=== PATIENT | male | born 1960 | race African-American/Black ===

== ENCOUNTER 2016-09-27 05:48 | Emergency (ER) | payer MEDICAID ==
[2016-08-28 14:13] VITALS: Ht 195.6 cm; Wt 136.1 kg
[~2016-09-27] VITALS: Ht 195.6 cm; Wt 136.1 kg
[~2016-09-27 05:48] MED LIST: ACYC400T PO; BUPR300T55 PO; FENTORA; HCTZ PO; LISI-600 PO; MORP40CA2 PO; NORCO5 PO; OXYC60TA8 PO; PROC10TA PO; PYRI100T2 PO; QUET400T PO; SEROQUEL PO; WELLBUTRIN PO; [UNRECOGNIZED DRUG - CODE] PO
[2016-09-27 05:50] VITALS: BP 153/96; PULSE 73; RESP 17; TEMP 98; O2SAT 99
[2016-09-27] MEDS ORDERED: NACL 0.9% 1,000 ML IV ONE (06:30)
[2016-09-27] MEDS ORDERED: MORPHINE 2 MG/ML INJ. SYRINGE IVP ONE (06:30)
[2016-09-27 07:14] LABS: BASOPHILS % (AUTO) 0.3 % (0.0-2.0); EOSINOPHILS # (AUTO) 0.2 K/uL (0.0-0.4); EOSINOPHILS % (AUTO) 3.2 % (0.0-4.0); HEMATOCRIT 31.6 % (36-54); HEMOGLOBIN 10.2 g/dL (14.0-18.0); LYMPHOCYTES # (AUTO) 0.9 K/uL (1.0-5.5); LYMPHOCYTES % (AUTO) 17.3 % (20.5-51.5); MEAN CORPUSCULAR HEMOGLOBIN 32 pg (27-31); MEAN CORPUSCULAR HGB CONC 32 % (32-36); MEAN CORPUSCULAR VOLUME 100 fL (79.0-98.0); MONOCYTES # (AUTO) 0.2 K/uL (0.0-1.0); MONOCYTES % (AUTO) 4.6 % (1.7-9.3); NEUTROPHILS # (AUTO) 3.8 K/uL (1.8-7.7); NEUTROPHILS % (AUTO) 74.6 % (40.0-70.0); PLATELET COUNT (AUTO) 294 K/uL (130-430); RED BLOOD CELL COUNT(AUTO) 3.15 MIL/uL (4.2-6.2); RED CELL DISTRIBUTION WIDTH 14.9 % (9.0-15.0); WHITE BLOOD COUNT (AUTO) 5.1 K/uL (4.8-10.8)
[2016-09-27 07:31] LABS: PROTHROMBIN TIME 10.4 SECS (9.5-12.5)
[2016-09-27 07:36] LABS: CALCIUM 8.1 mg/dL (8.4-11.0); CREATININE 1.31 mg/dL (0.55-1.30); POTASSIUM 3.8 mmol/L (3.5-5.1)
[2016-09-27 07:37] LABS: ALBUMIN 2.7 g/dL (3.4-4.8); TOTAL BILIRUBIN 0.2 mg/dL (0.0-1.0); TOTAL PROTEIN, SERUM 9.9 g/dL (6.4-8.3)
[2016-09-27] MEDS ORDERED: MORPHINE 4 MG/ML INJ. SYRINGE IVP ONE (09:45)
[2016-09-27] MEDS ORDERED: ONDANSETRON 4 MG ODT TAB PO ONE (09:45)
[2016-09-27 11:26] VITALS: BP 150/96; PULSE 73; RESP 17; TEMP 98; O2SAT 99
== END 2016-09-27 11:26 | disposition home or self-care (01) ==
LOC: SED 05:48
DX: G89.3 Neoplasm related pain (acute) (chronic) (principal); C90.00 Multiple myeloma not having achieved remission; D53.9 Nutritional anemia, unspecified; I10 Essential (primary) hypertension; R79.89 Other specified abnormal findings of blood chemistry; Z86.79 Personal history of other diseases of the circulatory system
CPT/HCPCS: 36415; 71010; 72131; 72192; 80053; 85025; 85610; 85730; 93005; 96374; 99285; J2270; J7030; Q0162

== ENCOUNTER 2018-10-02 09:51 | Inpatient (IN) | payer MEDICAID, OTHER ==
[~2018-10-02] VITALS: Ht 195.6 cm; Wt 137.0 kg
[~2018-10-02 09:51] MED LIST changes: -ACYC400T PO; -HCTZ PO; -MORP40CA2 PO; -NORCO5 PO; -PROC10TA PO; +PROC10TA13 PO; -SEROQUEL PO; -WELLBUTRIN PO
[2018-10-02 10:02] VITALS: BP_SYST 133
[2018-10-02] MEDS ORDERED: NS 1000 ML IV.SOLN IV ONE (11:00)
[2018-10-02] MEDS ORDERED: IPRATROPIUM BROM 0.5 MG/2.5 ML VIAL.NEB (ATROVENT) IH ONE (11:00)
[2018-10-02] MEDS ORDERED: methylPREDNISolone SOD SUCC/PF 62.5 MG/ML VIAL IVP ONE (11:00)
[2018-10-02] MEDS ORDERED: ALBUTEROL SULFATE 0.083% 2.5 MG/3 ML VIAL.NEB IH ONE (11:00)
[2018-10-02] MEDS ORDERED: cefTRIAXone 1 GM IVPB PREMIX 50 ML IV ONE (11:00)
[2018-10-02] MEDS ORDERED: ONDANSETRON HCL 4 MG/2 ML VIAL IVP ONE (11:30)
[2018-10-02] MEDS ORDERED: MORPHINE SULFATE 10 MG/ML VIAL IVP ONE (11:30)
[2018-10-02 12:14] LABS: BASOPHILS % (AUTO) 0.2 % (0.0-2.0); EOSINOPHILS # (AUTO) 0.1 K/uL (0.0-0.4); EOSINOPHILS % (AUTO) 1.1 % (0.0-4.0); HEMATOCRIT 26.4 % (36-54); HEMOGLOBIN 8.7 g/dL (14.0-18.0); LYMPHOCYTES # (AUTO) 1.2 K/uL (1.0-5.5); LYMPHOCYTES % (AUTO) 18.4 % (20.5-51.5); MEAN CORPUSCULAR HEMOGLOBIN 33 pg (27-31); MEAN CORPUSCULAR HGB CONC 33 % (32-36); MEAN CORPUSCULAR VOLUME 101 fL (79.0-98.0); MONOCYTES # (AUTO) 0.3 K/uL (0.0-1.0); MONOCYTES % (AUTO) 4.8 % (1.7-9.3); NEUTROPHILS % (AUTO) 75.5 % (40.0-70.0); PLATELET COUNT (AUTO) 403 K/uL (130-430); RED BLOOD CELL COUNT(AUTO) 2.62 MIL/uL (4.2-6.2); WHITE BLOOD COUNT (AUTO) 6.6 K/uL (4.8-10.8)
[2018-10-02 12:20] LABS: CALCIUM 8.6 mg/dL (8.4-11.0); CREATININE 1.41 mg/dL (0.55-1.30); POTASSIUM 3.6 mmol/L (3.5-5.1)
[2018-10-02 12:26] LABS: PROTHROMBIN TIME 10.6 SECS (9.5-12.5)
[2018-10-02] MEDS ORDERED: MORPHINE 4 MG/ML INJ. SYRINGE IVP ONE (12:30)
[2018-10-02 12:37] LABS: ALBUMIN 2.7 g/dL (3.4-4.8); TOTAL BILIRUBIN 0.3 mg/dL (0.0-1.0)
[2018-10-02 14:24] VITALS: BP_SYST 150
[2018-10-02] MEDS: KCL 20 mEq in D5/0.45NS 1000mL 1,000 ML IV SCH (15:39)
[2018-10-02] MEDS ORDERED: PROCHLORPERAZINE MALEATE 10 MG TABLET PO PRN (16:30)
[2018-10-02] MEDS: MORPHINE 4 MG/ML INJ. SYRINGE IVP PRN (16:32)
[2018-10-02 17:00] VITALS: BP_SYST 147
[2018-10-02 21:03] VITALS: BP_SYST 137
[2018-10-02] MEDS: MORPHINE SULFATE 30 MG TABLET.SA PO SCH (21:28)
[2018-10-02] MEDS: QUEtiapine FUMARATE 100 MG TABLET PO SCH (21:29)
[2018-10-03 02:29] LABS: BILIRUBIN,URINE NEGATIVE (NEGATIVE); CLARITY/URINE CLEAR (CLEAR); COLOR,URINE YELLOW (YELLOW); GLUCOSE,URINE NEGATIVE (NEGATIVE); KETONES,URINE NEGATIVE (NEGATIVE); LEUKOCYTE ESTERASE ,URINE NEGATIVE (NEGATIVE); NITRITE, URINE NEGATIVE (NEGATIVE); PROTEIN URINE NEGATIVE (NEGATIVE); UROBILINOGEN,URINE 0.2 (0.2-1.0)
[2018-10-03 02:30] LABS: BLOOD, URINE TRACE (NEGATIVE)
[2018-10-03 02:35] LABS: BACTERIA,URINE FEW /HPF (None Seen); WBC,URINE 0-3 /HPF (0-3)
[2018-10-03] MEDS: KCL 20 mEq in D5/0.45NS 1000mL 1,000 ML IV SCH ×3 (02:53→22:02)
[2018-10-03 03:26] VITALS: BP_SYST 124
[2018-10-03] MEDS: MORPHINE 4 MG/ML INJ. SYRINGE IVP PRN ×3 (03:52→12:05)
[2018-10-03 08:00] VITALS: BP_SYST 126
[2018-10-03] MEDS: MORPHINE SULFATE 30 MG TABLET.SA PO SCH ×2 (08:01→22:03)
[2018-10-03] MEDS: PYRIDOXINE HCL 50 MG TABLET PO SCH (08:01)
[2018-10-03] MEDS: buPROPion HCL 150 MG XL TAB PO SCH (08:01)
[2018-10-03] MEDS: LISINOPRIL 20 MG TABLET PO SCH (08:02)
[2018-10-03] MEDS: ENOXAPARIN SODIUM 40 MG/0.4 ML SYRINGE SUBCUT SCH (08:08)
[2018-10-03 11:39] VITALS: BP_SYST 139
[2018-10-03 16:38] VITALS: BP_SYST 127
[2018-10-03 19:45] VITALS: BP_SYST 135
[2018-10-03] MEDS: QUEtiapine FUMARATE 100 MG TABLET PO SCH (22:03)
[2018-10-04 00:24] VITALS: BP_SYST 136
[2018-10-04] MEDS: MORPHINE 4 MG/ML INJ. SYRINGE IVP PRN ×2 (05:20→12:32)
[2018-10-04 08:00] VITALS: BP_SYST 122
[2018-10-04] MEDS: MORPHINE SULFATE 30 MG TABLET.SA PO SCH (08:40)
[2018-10-04] MEDS: PYRIDOXINE HCL 50 MG TABLET PO SCH (08:41)
[2018-10-04] MEDS: buPROPion HCL 150 MG XL TAB PO SCH (08:41)
[2018-10-04] MEDS: LISINOPRIL 20 MG TABLET PO SCH (08:41)
[2018-10-04] MEDS: ENOXAPARIN SODIUM 40 MG/0.4 ML SYRINGE SUBCUT SCH (08:42)
[2018-10-04 12:29] VITALS: BP_SYST 137
[2018-10-04 14:05] VITALS: BP_SYST 137
[2018-10-04] MEDS ORDERED: HEPARIN IV FLUSH 300 UNITS/3ML SYR INJ ONE (14:30)
== END 2018-10-04 14:20 | disposition home or self-care (01) | DRG 347 ==
LOC: SED 09:51 → SMU 13:15
PROVIDERS: ADMIT Family Medicine; ATTEND Family Medicine
DX: M51.06 Intervertebral disc disorders with myelopathy, lumbar region (principal); E44.0 Moderate protein-calorie malnutrition; C90.00 Multiple myeloma not having achieved remission; D64.9 Anemia, unspecified; F17.200 Nicotine dependence, unspecified, uncomplicated; G89.29 Other chronic pain; I10 Essential (primary) hypertension; Z92.21 Personal history of antineoplastic chemotherapy; Z68.35 Body mass index [BMI] 35.0-35.9, adult
CPT/HCPCS: 36415; 71045; 72131; 80053; 81000-TC; 82550-TC; 83605; 83880; 84484; 85025; 85379; 85610-TC; 85730-TC; 87040-TC; 93005; 94640; 96361; 96365; 96375; 96376; 97110-GP; 97116-GP; 97530-GP; 99285; J0696; J1650; J2270; J2274; J2405; J2930; J7030; J7613; Q0164

== ENCOUNTER 2018-11-27 14:26 | Inpatient (IN) | payer OTHER ==
[~2018-11-27] VITALS: Ht 195.6 cm; Wt 125.2 kg
[2018-11-27] MEDS ORDERED: NACL 0.9% 1,000 ML IV ONE (14:31)
[2018-11-27 14:33] VITALS: BP_SYST 146
[2018-11-27 15:22] LABS: CALCIUM 9.1 mg/dL (8.4-11.0); CREATININE 1.08 mg/dL (0.55-1.30); POTASSIUM 3.4 mmol/L (3.5-5.1)
[2018-11-27 15:24] LABS: HEMATOCRIT 28.7 % (36-54); HEMOGLOBIN 9.5 g/dL (14.0-18.0); LYMPHOCYTES % (AUTO) 16.2 % (20.5-51.5); MEAN CORPUSCULAR HEMOGLOBIN 32 pg (27-31); MEAN CORPUSCULAR HGB CONC 33 % (32-36); MEAN CORPUSCULAR VOLUME 98 fL (79.0-98.0); NEUTROPHILS % (AUTO) 74.6 % (40.0-70.0); PLATELET COUNT (AUTO) 457 K/uL (130-430); RED BLOOD CELL COUNT(AUTO) 2.93 MIL/uL (4.2-6.2); RED CELL DISTRIBUTION WIDTH 15.6 % (9.0-15.0); WHITE BLOOD COUNT (AUTO) 5.1 K/uL (4.8-10.8)
[2018-11-27 15:25] LABS: BASOPHILS % (AUTO) 0.4 % (0.0-2.0); EOSINOPHILS # (AUTO) 0.2 K/uL (0.0-0.4); EOSINOPHILS % (AUTO) 3.9 % (0.0-4.0); LYMPHOCYTES # (AUTO) 0.8 K/uL (1.0-5.5); MONOCYTES # (AUTO) 0.2 K/uL (0.0-1.0); MONOCYTES % (AUTO) 4.9 % (1.7-9.3); NEUTROPHILS # (AUTO) 3.8 K/uL (1.8-7.7)
[2018-11-27 15:26] LABS: PROTHROMBIN TIME 10.4 SECS (9.5-12.5)
[2018-11-27 15:36] LABS: ALBUMIN 2.7 g/dL (3.4-4.8); TOTAL BILIRUBIN 0.3 mg/dL (0.0-1.0)
[2018-11-27] MEDS ORDERED: MORPHINE 4 MG/ML INJ. SYRINGE IVP ONE (16:45)
[2018-11-27] MEDS ORDERED: PROCHLORPERAZINE MALEATE 10 MG TABLET PO SCH (19:00)
[2018-11-27] MEDS ORDERED: MAGNESIUM SULFATE 50 ML IV PRN (19:00)
[2018-11-27] MEDS ORDERED: MUPIROCIN 2% TOPICAL OINTMENT 22 GM NS PRN (19:00)
[2018-11-27] MEDS ORDERED: DOCUSATE SODIUM 100 MG CAPSULE PO PRN (19:00)
[2018-11-27] MEDS ORDERED: ACETAMINOPHEN 325 MG TABLET PO PRN (19:00)
[2018-11-27] MEDS ORDERED: HYDROcodone/ACETAMIN 5-325 MG TAB (NORCO/ VICODIN) PO PRN (19:00)
[2018-11-27] MEDS ORDERED: POTASSIUM CHLORIDE 20 MEQ TAB.PRT.SR PO PRN (19:00)
[2018-11-27] MEDS ORDERED: ACYC400T PO (19:48)
[2018-11-27] MEDS ORDERED: DOCU-144 PO (19:48)
[2018-11-27] MEDS ORDERED: MED4 PO (19:48)
[2018-11-27] MEDS ORDERED: MAG1TABL2 PO (19:48)
[2018-11-27] MEDS: QUEtiapine FUMARATE 100 MG TABLET PO SCH (21:06)
[2018-11-27] MEDS: HEPARIN SODIUM,PORCINE 5000 UNITS/ML VIAL SUBCUT SCH (21:13)
[2018-11-27 21:26] VITALS: BP_SYST 159
[2018-11-27 23:59] VITALS: BP_SYST 140
[2018-11-28] MEDS: HYDROcodone/ACETAMIN 5-325 MG TAB (NORCO/ VICODIN) PO PRN (06:17)
[2018-11-28] MEDS: HEPARIN SODIUM,PORCINE 5000 UNITS/ML VIAL SUBCUT SCH ×2 (06:19→18:22)
[2018-11-28 07:50] VITALS: BP_SYST 146
[2018-11-28 08:27] LABS: CALCIUM 8.3 mg/dL (8.4-11.0); CREATININE 1.15 mg/dL (0.55-1.30); POTASSIUM 3.7 mmol/L (3.5-5.1)
[2018-11-28] MEDS: LISINOPRIL 20 MG TABLET PO SCH (08:43)
[2018-11-28] MEDS: buPROPion HCL 150 MG XL TAB PO SCH (08:43)
[2018-11-28 09:03] LABS: BASOPHILS % (AUTO) 0.3 % (0.0-2.0); EOSINOPHILS # (AUTO) 0.2 K/uL (0.0-0.4); HEMATOCRIT 27.4 % (36-54); HEMOGLOBIN 8.8 g/dL (14.0-18.0); LYMPHOCYTES # (AUTO) 0.7 K/uL (1.0-5.5); LYMPHOCYTES % (AUTO) 17.5 % (20.5-51.5); MEAN CORPUSCULAR HEMOGLOBIN 32 pg (27-31); MEAN CORPUSCULAR HGB CONC 32 % (32-36); MEAN CORPUSCULAR VOLUME 98 fL (79.0-98.0); MONOCYTES # (AUTO) 0.3 K/uL (0.0-1.0); MONOCYTES % (AUTO) 6.2 % (1.7-9.3); PLATELET COUNT (AUTO) 415 K/uL (130-430); RED BLOOD CELL COUNT(AUTO) 2.78 MIL/uL (4.2-6.2); RED CELL DISTRIBUTION WIDTH 15.8 % (9.0-15.0); WHITE BLOOD COUNT (AUTO) 4.1 K/uL (4.8-10.8)
[2018-11-28 12:18] VITALS: BP_SYST 141
[2018-11-28] MEDS ORDERED: amLODIPine BESYLATE 5 MG TABLET PO ONE (13:00)
[2018-11-28 16:22] VITALS: BP_SYST 131
[2018-11-28 20:12] VITALS: BP_SYST 151
[2018-11-28] MEDS: QUEtiapine FUMARATE 100 MG TABLET PO SCH (22:12)
[2018-11-29 00:40] VITALS: BP_SYST 139
[2018-11-29] MEDS: HYDROcodone/ACETAMIN 5-325 MG TAB (NORCO/ VICODIN) PO PRN ×3 (00:46→18:01)
[2018-11-29] MEDS: HEPARIN SODIUM,PORCINE 5000 UNITS/ML VIAL SUBCUT SCH ×2 (06:54→18:31)
[2018-11-29 07:02] LABS: CALCIUM 8.8 mg/dL (8.4-11.0); CREATININE 1.18 mg/dL (0.55-1.30); POTASSIUM 3.4 mmol/L (3.5-5.1)
[2018-11-29 08:05] VITALS: BP_SYST 154
[2018-11-29] MEDS: LISINOPRIL 20 MG TABLET PO SCH (08:37)
[2018-11-29] MEDS: amLODIPine BESYLATE 5 MG TABLET PO SCH (08:37)
[2018-11-29] MEDS: buPROPion HCL 150 MG XL TAB PO SCH (08:37)
[2018-11-29 09:07] LABS: HEMATOCRIT 26.8 % (36-54); HEMOGLOBIN 8.6 g/dL (14.0-18.0); MEAN CORPUSCULAR HEMOGLOBIN 32 pg (27-31); MEAN CORPUSCULAR HGB CONC 32 % (32-36); MEAN CORPUSCULAR VOLUME 99 fL (79.0-98.0); PLATELET COUNT (AUTO) 394 K/uL (130-430); RED BLOOD CELL COUNT(AUTO) 2.71 MIL/uL (4.2-6.2); RED CELL DISTRIBUTION WIDTH 15.5 % (9.0-15.0); WHITE BLOOD COUNT (AUTO) 3.4 K/uL (4.8-10.8)
[2018-11-29 09:08] LABS: BASOPHILS % (AUTO) 0.2 % (0.0-2.0); EOSINOPHILS # (AUTO) 0.1 K/uL (0.0-0.4); EOSINOPHILS % (AUTO) 3.4 % (0.0-4.0); LYMPHOCYTES # (AUTO) 0.8 K/uL (1.0-5.5); LYMPHOCYTES % (AUTO) 24.5 % (20.5-51.5); MONOCYTES # (AUTO) 0.2 K/uL (0.0-1.0); MONOCYTES % (AUTO) 7.1 % (1.7-9.3); NEUTROPHILS # (AUTO) 2.2 K/uL (1.8-7.7); NEUTROPHILS % (AUTO) 64.8 % (40.0-70.0)
[2018-11-29] MEDS ORDERED: CALCIUM CARBONATE/VITAMIN D3 1 TAB TABLET PO ONE (10:15)
[2018-11-29 12:32] VITALS: BP_SYST 131
[2018-11-29 17:00] VITALS: BP_SYST 128
[2018-11-29] MEDS: NACL 0.9% 1,000 ML IV SCH (18:03)
[2018-11-29 20:00] VITALS: BP_SYST 155
[2018-11-29] MEDS: QUEtiapine FUMARATE 100 MG TABLET PO SCH (21:29)
[2018-11-29 23:25] VITALS: BP_SYST 128
[2018-11-30] MEDS: NACL 0.9% 1,000 ML IV SCH ×2 (02:55→20:09)
[2018-11-30] MEDS: HYDROcodone/ACETAMIN 5-325 MG TAB (NORCO/ VICODIN) PO PRN ×3 (04:06→20:10)
[2018-11-30] MEDS: HEPARIN SODIUM,PORCINE 5000 UNITS/ML VIAL SUBCUT SCH ×2 (06:43→18:20)
[2018-11-30 06:45] LABS: CALCIUM 8.6 mg/dL (8.4-11.0); CREATININE 1.18 mg/dL (0.55-1.30); POTASSIUM 3.8 mmol/L (3.5-5.1)
[2018-11-30 06:49] LABS: BASOPHILS % (AUTO) 0.4 % (0.0-2.0); EOSINOPHILS # (AUTO) 0.1 K/uL (0.0-0.4); HEMATOCRIT 27.5 % (36-54); HEMOGLOBIN 8.9 g/dL (14.0-18.0); LYMPHOCYTES # (AUTO) 0.7 K/uL (1.0-5.5); LYMPHOCYTES % (AUTO) 21.4 % (20.5-51.5); MEAN CORPUSCULAR HEMOGLOBIN 32 pg (27-31); MEAN CORPUSCULAR HGB CONC 32 % (32-36); MEAN CORPUSCULAR VOLUME 99 fL (79.0-98.0); MONOCYTES # (AUTO) 0.3 K/uL (0.0-1.0); MONOCYTES % (AUTO) 7.5 % (1.7-9.3); NEUTROPHILS # (AUTO) 2.3 K/uL (1.8-7.7); NEUTROPHILS % (AUTO) 66.7 % (40.0-70.0); PLATELET COUNT (AUTO) 393 K/uL (130-430); RED BLOOD CELL COUNT(AUTO) 2.79 MIL/uL (4.2-6.2); RED CELL DISTRIBUTION WIDTH 15.3 % (9.0-15.0); WHITE BLOOD COUNT (AUTO) 3.4 K/uL (4.8-10.8)
[2018-11-30 07:18] VITALS: BP_SYST 152
[2018-11-30 08:00] VITALS: BP_SYST 152
[2018-11-30 08:24] LABS: IMMUNOGLOBULIN G, SERUM 3874 mg/dL (700-1600)
[2018-11-30] MEDS: amLODIPine BESYLATE 5 MG TABLET PO SCH (09:10)
[2018-11-30] MEDS: buPROPion HCL 150 MG XL TAB PO SCH (09:10)
[2018-11-30] MEDS: CALCIUM CARBONATE/VITAMIN D3 1 TAB TABLET PO SCH (09:10)
[2018-11-30] MEDS: LISINOPRIL 20 MG TABLET PO SCH (09:11)
[2018-11-30 10:07] LABS: IMMUNOGLOBULIN M, SERUM <5 mg/dL (20-172)
[2018-11-30 11:46] VITALS: BP_SYST 141
[2018-11-30 15:45] VITALS: BP_SYST 160
[2018-11-30] MEDS ORDERED: DEXAMETHASONE SOD PHOSPHATE 10 MG/ML VIAL IVP SCH (18:30)
[2018-11-30 20:00] VITALS: BP_SYST 114
[2018-11-30] MEDS: QUEtiapine FUMARATE 100 MG TABLET PO SCH (20:09)
[2018-12-01] VITALS: BP_SYST 143
[2018-12-01] MEDS: HYDROcodone/ACETAMIN 5-325 MG TAB (NORCO/ VICODIN) PO PRN ×3 (06:23→23:14)
[2018-12-01] MEDS: HEPARIN SODIUM,PORCINE 5000 UNITS/ML VIAL SUBCUT SCH ×2 (06:25→20:37)
[2018-12-01 06:51] LABS: CALCIUM 8.4 mg/dL (8.4-11.0); CREATININE 1.19 mg/dL (0.55-1.30); POTASSIUM 3.7 mmol/L (3.5-5.1)
[2018-12-01 07:05] LABS: BASOPHILS % (AUTO) 0.4 % (0.0-2.0); EOSINOPHILS # (AUTO) 0.1 K/uL (0.0-0.4); HEMATOCRIT 27.9 % (36-54); LYMPHOCYTES # (AUTO) 0.9 K/uL (1.0-5.5); LYMPHOCYTES % (AUTO) 25.5 % (20.5-51.5); MEAN CORPUSCULAR HEMOGLOBIN 32 pg (27-31); MEAN CORPUSCULAR HGB CONC 32 % (32-36); MEAN CORPUSCULAR VOLUME 98 fL (79.0-98.0); MONOCYTES # (AUTO) 0.2 K/uL (0.0-1.0); MONOCYTES % (AUTO) 6.4 % (1.7-9.3); NEUTROPHILS # (AUTO) 2.2 K/uL (1.8-7.7); NEUTROPHILS % (AUTO) 63.7 % (40.0-70.0); PLATELET COUNT (AUTO) 402 K/uL (130-430); RED BLOOD CELL COUNT(AUTO) 2.83 MIL/uL (4.2-6.2); RED CELL DISTRIBUTION WIDTH 15.7 % (9.0-15.0); WHITE BLOOD COUNT (AUTO) 3.4 K/uL (4.8-10.8)
[2018-12-01 07:51] VITALS: BP_SYST 139
[2018-12-01] MEDS: amLODIPine BESYLATE 5 MG TABLET PO SCH (09:12)
[2018-12-01] MEDS: CALCIUM CARBONATE/VITAMIN D3 1 TAB TABLET PO SCH (09:13)
[2018-12-01] MEDS: buPROPion HCL 150 MG XL TAB PO SCH (09:13)
[2018-12-01] MEDS: LISINOPRIL 20 MG TABLET PO SCH (09:13)
[2018-12-01 10:13] LABS: A/G RATIO 0.5 (0.7-1.7); ALBUMIN 2.8 g/dL (2.9-4.4); ALPHA-1-GLOBULIN 0.3 g/dL (0.0-0.4); ALPHA-2-GLOBULIN 1.1 g/dL (0.4-1.0); BETA GLOBULIN 0.9 g/dL (0.7-1.3); GLOBULIN, TOTAL 5.3 g/dL (2.2-3.9); M-SPIKE 2.7 g/dL (Not Observed)
[2018-12-01 12:00] VITALS: BP_SYST 140
[2018-12-01] MEDS: NACL 0.9% 1,000 ML IV SCH (12:31)
[2018-12-01] MEDS ORDERED: LORazepam 2 MG/ML VIAL IVP ONE (13:00)
[2018-12-01] MEDS ORDERED: LORazepam 2 MG/ML VIAL ONE (13:20)
[2018-12-01] MEDS ORDERED: GADOPENTETATE DIMEGLUMINE 15 ML VIAL IV ONE (13:20)
[2018-12-01] MEDS ORDERED: GADOPENTETATE DIMEGLUMINE 5 ML VIAL IV ONE (13:20)
[2018-12-01 16:00] VITALS: BP_SYST 142
[2018-12-01 19:00] VITALS: BP_SYST 139
[2018-12-01 20:00] VITALS: BP_SYST 139
[2018-12-01] MEDS: QUEtiapine FUMARATE 100 MG TABLET PO SCH (20:35)
[2018-12-02 00:03] VITALS: BP_SYST 139
[2018-12-02] MEDS: HYDROcodone/ACETAMIN 5-325 MG TAB (NORCO/ VICODIN) PO PRN ×3 (03:32→23:47)
[2018-12-02] MEDS: NACL 0.9% 1,000 ML IV SCH ×2 (03:33→23:52)
[2018-12-02] MEDS: HEPARIN SODIUM,PORCINE 5000 UNITS/ML VIAL SUBCUT SCH ×2 (06:31→18:53)
[2018-12-02 07:05] LABS: CALCIUM 8.7 mg/dL (8.4-11.0); CREATININE 1.24 mg/dL (0.55-1.30); POTASSIUM 3.8 mmol/L (3.5-5.1)
[2018-12-02 07:23] LABS: BASOPHILS % (AUTO) 0.2 % (0.0-2.0); EOSINOPHILS # (AUTO) 0.2 K/uL (0.0-0.4); EOSINOPHILS % (AUTO) 4.1 % (0.0-4.0); HEMATOCRIT 28.8 % (36-54); HEMOGLOBIN 9.2 g/dL (14.0-18.0); LYMPHOCYTES % (AUTO) 26.4 % (20.5-51.5); MEAN CORPUSCULAR HEMOGLOBIN 32 pg (27-31); MEAN CORPUSCULAR HGB CONC 32 % (32-36); MEAN CORPUSCULAR VOLUME 99 fL (79.0-98.0); MONOCYTES # (AUTO) 0.3 K/uL (0.0-1.0); NEUTROPHILS # (AUTO) 2.3 K/uL (1.8-7.7); NEUTROPHILS % (AUTO) 61.3 % (40.0-70.0); PLATELET COUNT (AUTO) 384 K/uL (130-430); WHITE BLOOD COUNT (AUTO) 3.7 K/uL (4.8-10.8)
[2018-12-02 07:44] VITALS: BP_SYST 147
[2018-12-02] MEDS: CALCIUM CARBONATE/VITAMIN D3 1 TAB TABLET PO SCH (08:20)
[2018-12-02] MEDS: amLODIPine BESYLATE 5 MG TABLET PO SCH (08:22)
[2018-12-02] MEDS: buPROPion HCL 150 MG XL TAB PO SCH (08:22)
[2018-12-02] MEDS: LISINOPRIL 20 MG TABLET PO SCH (08:22)
[2018-12-02 16:03] VITALS: BP_SYST 132
[2018-12-02 21:00] VITALS: BP_SYST 144
[2018-12-02] MEDS: QUEtiapine FUMARATE 100 MG TABLET PO SCH (21:02)
[2018-12-03 01:20] VITALS: BP_SYST 119
[2018-12-03] MEDS: HYDROcodone/ACETAMIN 5-325 MG TAB (NORCO/ VICODIN) PO PRN (04:00)
[2018-12-03] MEDS: HEPARIN SODIUM,PORCINE 5000 UNITS/ML VIAL SUBCUT SCH (06:19)
[2018-12-03 08:06] VITALS: BP_SYST 150
== END 2018-12-03 09:05 | disposition left against medical advice (07) | DRG 691 ==
LOC: SED 14:26 → SMU 18:59
PROVIDERS: ADMIT Family Medicine; ATTEND Family Medicine
DX: C90.00 Multiple myeloma not having achieved remission (principal); C41.4 Malignant neoplasm of pelvic bones, sacrum and coccyx; F33.2 Major depressive disorder, recurrent severe without psychotic features; F11.20 Opioid dependence, uncomplicated; E87.1 Hypo-osmolality and hyponatremia; G35 Multiple sclerosis; R45.851 Suicidal ideations; Z53.21 Procedure and treatment not carried out due to patient leaving prior to being seen by health care provider; I70.90 Unspecified atherosclerosis; Z53.29 Procedure and treatment not carried out because of patient's decision for other reasons; F17.210 Nicotine dependence, cigarettes, uncomplicated; M25.552 Pain in left hip; M25.551 Pain in right hip; D64.9 Anemia, unspecified; M54.9 Dorsalgia, unspecified; I10 Essential (primary) hypertension; M47.816 Spondylosis without myelopathy or radiculopathy, lumbar region; G89.4 Chronic pain syndrome; Z91.5 Personal history of self-harm; Z79.899 Other long term (current) drug therapy; Z92.21 Personal history of antineoplastic chemotherapy; Z76.5 Malingerer [conscious simulation]; Z59.0 Homelessness; Z79.52 Long term (current) use of systemic steroids; Z98.1 Arthrodesis status
CPT/HCPCS: 36415; 70450-TC; 71045; 71250-TC; 72100-TC; 80048; 80053; 82150-TC; 82550-TC; 82784; 83036; 83605; 83690-TC; 83735-TC; 83880; 84100-TC; 84155; 84165; 84443-TC; 84484; 85025; 85379; 85610-TC; 85730-TC; 87040-TC; 87081; 93005; 93970; 96361; 96374; 97110-GP; 97116-GP; 97530-GP; 99285; A9579; J1644; J2060; J2270; J7030; Q0164

== ENCOUNTER 2019-01-27 10:13 | Emergency (ER) | payer MEDICAID ==
[~2019-01-27] VITALS: Ht 195.6 cm; Wt 129.3 kg
[2019-01-27 10:13] VITALS: BP_SYST 140
[~2019-01-27 10:13] MED LIST changes: +ACYC400T PO; -BUPR300T55 PO; +DOCU-144 PO; -FENTORA; +MAG1TABL2 PO; +MED4 PO; -OXYC60TA8 PO; -PROC10TA13 PO; -[UNRECOGNIZED DRUG - CODE] PO
--- NOTE | 2019-01-27 10:13 | NUR ---
BROUGHT BACK TO BED #4 VIA WHEELCHAIR, PLACED IN BED AND TRIAGED. REPORT GIVEN TO ANGUS
--- NOTE | 2019-01-27 10:20 | NUR ---
PT came into ER complaining of chest pain. PT advised that he is unble to move his arm. PT vitals stable and EKG completed for MD Sher to interpret.
--- NOTE | 2019-01-27 10:30 | NUR ---
GISSELLE Edward at bedside examining patient.
[2019-01-27] MEDS ORDERED: MORPHINE 4 MG/ML INJ. SYRINGE IM ONE ×2 (10:45→11:30)
--- NOTE | 2019-01-27 10:45 | NUR ---
Rad staff at bedside completing an xray.
--- NOTE | 2019-01-27 11:01 | NUR ---
Patient resting quietly. No acute distress noted. Vital signs within normal range.
[2019-01-27 11:40] VITALS: BP_SYST 140
--- NOTE | 2019-01-27 11:40 | NUR ---
Patient given written and verbal discharge instructions and verbalizes understanding. ER MD discussed with patient the results and treatment provided. Patient in stable condition. ID arm band removed. Rx of Naproxen given. Patient educated on pain management and to follow up with PMD. Pain Scale 6/10. Opportunity for questions provided and answered. Medication side effect fact sheet provided.
== END 2019-01-27 11:40 | disposition home or self-care (01) ==
LOC: SED 10:13
DX: G89.29 Other chronic pain (principal); M25.511 Pain in right shoulder; I10 Essential (primary) hypertension; Z59.0 Homelessness; Z86.79 Personal history of other diseases of the circulatory system; Z79.899 Other long term (current) drug therapy
CPT/HCPCS: 73000; 73030; 93005; 96372; 99283; J2270

== ENCOUNTER 2019-01-30 10:29 | Emergency (ER) | payer MEDICAID ==
[~2019-01-30] VITALS: Ht 193 cm; Wt 136.1 kg
[2019-01-30 10:30] VITALS: BP_SYST 154
[2019-01-30] MEDS ORDERED: KETOROLAC TROMETHAMINE 60 MG/2 ML VIAL IM ONE (13:45)
== END 2019-01-30 14:20 | disposition home or self-care (01) ==
LOC: SED 10:29
DX: L76.34 Postprocedural seroma of skin and subcutaneous tissue following other procedure (principal); I10 Essential (primary) hypertension; Z86.79 Personal history of other diseases of the circulatory system; Z79.899 Other long term (current) drug therapy
CPT/HCPCS: 96372; 99284; J1885; 99283

== ENCOUNTER 2019-02-25 19:40 | Emergency (ER) | payer MEDICAID ==
[~2019-02-25] VITALS: Ht 195.6 cm; Wt 127.0 kg
[2019-02-25 19:49] VITALS: BP_SYST 149
--- NOTE | 2019-02-25 19:55 | NUR ---
Patient triaged and placed in waiting room. VSS and patient appears in no acute distress at this time. Accompanied by self, awaiting available bed, and MD notified of need for MSE.
--- NOTE | 2019-02-25 21:06 | NUR ---
Radiology unable to locate patient at this time for films.
[2019-02-26] MEDS ORDERED: APIX5TAB4 PO (13:40)
[2019-02-26] MEDS ORDERED: CYAN100070 PO (13:40)
[2019-02-26] MEDS ORDERED: [UNRECOGNIZED DRUG - OTHER] (13:40)
[2019-02-26] MEDS ORDERED: METH2TAB PO (13:40)
[2019-02-26] MEDS ORDERED: magnesium PO (13:40)
[2019-02-26] MEDS ORDERED: Vit B6 PO (13:40)
[2019-02-26] MEDS ORDERED: GABA-531 PO (13:40)
[2019-02-26] MEDS ORDERED: VIT A PO (13:40)
[2019-02-26] MEDS ORDERED: OMEG1CAP PO (13:41)
== END 2019-02-25 21:06 | disposition left against medical advice (07) ==
LOC: SED 19:40
DX: M25.552 Pain in left hip (principal); R20.2 Paresthesia of skin; Z53.21 Procedure and treatment not carried out due to patient leaving prior to being seen by health care provider
CPT/HCPCS: J7030

== ENCOUNTER 2019-02-26 09:10 | Inpatient (IN) | payer MEDICAID ==
[~2019-02-26] VITALS: Ht 195.6 cm; Wt 129.7 kg
[2019-02-26] MEDS ORDERED: NS 1000 ML IV.SOLN IV ONE (09:15)
[2019-02-26] MEDS ORDERED: NITROGLYCERIN 0.4 MG TAB.SUBL SL ONE (09:15)
[2019-02-26] MEDS ORDERED: NACL 0.9% 1,000 ML IV ONE (09:15)
[2019-02-26] MEDS ORDERED: MORPHINE 4 MG/ML INJ. SYRINGE IVP ONE ×2 (09:15→12:00)
[2019-02-26] MEDS ORDERED: ASPIRIN 81 MG TAB.CHEW PO ONE (09:15)
[2019-02-26 09:20] VITALS: BP_SYST 146
--- NOTE | 2019-02-26 09:21 | NUR ---
ER Dr. GONZALEZ at bedside examining patient.
--- NOTE | 2019-02-26 09:22 | NUR ---
PT found at parking lot infront of ER laying on the floor. PT was not bleeding and advised he had chest and hip pain. PT stated the pain was generalized throught chest and hip. PT was able to transfer to wheelchair and placed in bed 6.
--- NOTE | 2019-02-26 09:30 | NUR ---
PT has a port a cath on upper right chest. Accessed with pressley needle. PT tolerated without complication or complaint.
--- NOTE | 2019-02-26 09:45 | NUR ---
radiology at bedside. PT with RN and Rad staff.
[2019-02-26 10:28] LABS: BASOPHILS % (AUTO) 0.5 % (0.0-2.0); EOSINOPHILS # (AUTO) 0.2 K/uL (0.0-0.4); EOSINOPHILS % (AUTO) 3.4 % (0.0-4.0); HEMATOCRIT 29.4 % (36-54); HEMOGLOBIN 9.6 g/dL (14.0-18.0); LYMPHOCYTES # (AUTO) 0.8 K/uL (1.0-5.5); LYMPHOCYTES % (AUTO) 17.3 % (20.5-51.5); MEAN CORPUSCULAR HEMOGLOBIN 32 pg (27-31); MEAN CORPUSCULAR HGB CONC 33 % (32-36); MEAN CORPUSCULAR VOLUME 98 fL (79.0-98.0); MONOCYTES # (AUTO) 0.2 K/uL (0.0-1.0); MONOCYTES % (AUTO) 3.9 % (1.7-9.3); NEUTROPHILS # (AUTO) 3.4 K/uL (1.8-7.7); NEUTROPHILS % (AUTO) 74.9 % (40.0-70.0); PLATELET COUNT (AUTO) 274 K/uL (130-430); RED CELL DISTRIBUTION WIDTH 15.4 % (9.0-15.0); WHITE BLOOD COUNT (AUTO) 4.5 K/uL (4.8-10.8)
[2019-02-26 10:35] LABS: PROTHROMBIN TIME 10.1 SECS (9.5-12.5)
[2019-02-26 10:56] LABS: CALCIUM 8.3 mg/dL (8.4-11.0); CREATININE 1.08 mg/dL (0.55-1.30); POTASSIUM 4.5 mmol/L (3.5-5.1)
[2019-02-26 11:01] LABS: ALBUMIN 2.5 g/dL (3.4-4.8); TOTAL BILIRUBIN 0.4 mg/dL (0.0-1.0)
[2019-02-26 12:40] LABS: BILIRUBIN,URINE NEGATIVE (NEGATIVE); CLARITY/URINE CLEAR (CLEAR); COLOR,URINE YELLOW (YELLOW); GLUCOSE,URINE NEGATIVE (NEGATIVE); KETONES,URINE NEGATIVE (NEGATIVE); LEUKOCYTE ESTERASE ,URINE NEGATIVE (NEGATIVE); NITRITE, URINE NEGATIVE (NEGATIVE); PROTEIN URINE NEGATIVE (NEGATIVE); UROBILINOGEN,URINE 0.2 (0.2-1.0)
[2019-02-26 12:43] LABS: BLOOD, URINE TRACE (NEGATIVE)
--- NOTE | 2019-02-26 12:53 | NUR ---
Spoke with Dr. Lui Branham, admission orders recieved, orders entered by nurse.
[2019-02-26 13:13] LABS: BACTERIA,URINE RARE /HPF (None Seen); MUCUS,URINE 1+ /LPF (None Seen); RBC,URINE 0-3 /HPF (0-3); WBC,URINE 0-3 /HPF (0-3)
[2019-02-26] MEDS ORDERED: APIX5TAB4 PO (13:40)
[2019-02-26] MEDS ORDERED: CYAN100070 PO (13:40)
[2019-02-26] MEDS ORDERED: VIT A PO (13:40)
[2019-02-26] MEDS ORDERED: magnesium PO (13:40)
[2019-02-26] MEDS ORDERED: [UNRECOGNIZED DRUG - OTHER] (13:40)
[2019-02-26] MEDS ORDERED: GABA-531 PO (13:40)
[2019-02-26] MEDS ORDERED: Vit B6 PO (13:40)
[2019-02-26] MEDS ORDERED: METH2TAB PO (13:40)
[2019-02-26] MEDS ORDERED: OMEG1CAP PO (13:41)
--- NOTE | 2019-02-26 13:50 | NUR ---
Medication reconciliation completed with information provided by patient . Any prior medication reconciliation on file was reviewed and corrected.
--- NOTE | 2019-02-26 14:00 | NUR ---
ADMISSION NOTE Received patient from ER via nayeli, received report from ROBERTH VALDES. Patient admitted with diagnosis of CHEST PAIN. Patient oriented to hospital routine, call light, toileting and safety-patient verbalized understanding.
--- NOTE | 2019-02-26 14:10 | NUR ---
Patient will be admitted to care of Dr Branham. Admitted to Tele unit. Will go to room 102A . Belongings list completed. Summary report printed. Report will be given at bedside.
[2019-02-26 14:15] VITALS: BP_SYST 147
--- NOTE | 2019-02-26 14:23 | NUR ---
opening note patient is resting in bed, watching tv and eating, A&Ox4, assessment completed, no signs of distress, educated on plan of care and call light system, no other needs at this time, patient came in with a right chest portacath, fall/safety precautions in place.
[2019-02-26] MEDS ORDERED: LORazepam 2 MG/ML VIAL IVP PRN (16:15)
[2019-02-26] MEDS ORDERED: HYDROcodone/ACETAMIN 5-325 MG TAB (NORCO/ VICODIN) PO PRN (16:15)
[2019-02-26] MEDS ORDERED: PROCHLORPERAZINE MALEATE 10 MG TABLET PO PRN (16:15)
[2019-02-26] MEDS ORDERED: ACETAMINOPHEN 325 MG TABLET PO PRN (16:15)
[2019-02-26 17:05] VITALS: BP_SYST 159
[2019-02-26] MEDS: HYDROcodone/ACETAMIN 10-325 MG TAB PO PRN ×2 (17:05→22:09)
--- NOTE | 2019-02-26 17:05 | NUR ---
pain medication patient is resting in bed, complaining of right hip pain, educated on medication use and side effects, patient verbalized understanding, no other needs at this time, fall/safety precautions in place.
--- NOTE | 2019-02-26 18:43 | NUR ---
closing note patient resting in bed, I spoke to Dr Branham in regards to the patient's complaints of right arm numbness and pain, okayed for x-ray of the arm, informed patient about this, no other needs at this time, will endorse report to [facility] shift nurse about this, fall/safety precautions in place.
--- NOTE | 2019-02-26 19:30 | NUR ---
OPENING NOTE RECEIVED CARE OF PT. PT RESTING IN BED, AAOX4, NO S/S OF ACUTE DISTRESS, BREATHING IS UNLABORED TO ROOM AIR WITH NO SOB NOTED. RIGHT CHEST PORTACATH IS IN PLACE. PT ORIENTED TO USE OF CALL LIGHT AND ENCOURAGED TO CALL FOR ANY ASSISTANCE. SAFETY PRECAUTIONS ARE IN PLACE: BED IS LOCKED IN LOWEST POSITION, SIDE RAILS UP X2, CALL LIGHT IS WITH PT, BED ALARM ON. WILL MONITOR.
[2019-02-26 20:00] VITALS: BP_SYST 148
[2019-02-26] MEDS: GABAPENTIN 300 MG CAPSULE PO SCH (20:02)
[2019-02-26] MEDS: QUEtiapine FUMARATE 100 MG TABLET PO SCH (20:02)
[2019-02-26] MEDS: DOCUSATE SODIUM 100 MG CAPSULE PO SCH (20:02)
[2019-02-26] MEDS: NORMAL SALINE 5 ML DISP.SYRIN IVF SCH ×2 (20:03)
[2019-02-26] MEDS: APIXABAN 2.5 MG TABLET PO SCH (20:03)
--- NOTE | 2019-02-26 20:03 | NUR ---
SCHEDULED MED PASS PT GIVEN SCHEDULED MEDICATIONS. MEDICATION ACTIONS AND POTENTIAL SIDE EFFECTS EXPLAINED TO PT. PT VERBALIZED UNDERSTANDING. SAFETY PRECAUTIONS ARE IN PLACE. WILL MONITOR.
--- NOTE | 2019-02-26 22:09 | NUR ---
PAIN/NORCO PT REPORTING SEVERE BACK PAIN. NORCO 10-325 MG PO ADMINISTERED. MEDICATION ACTION AND POTENTIAL SIDE EFFECTS EXPLAINED. PT VERBALIZED UNDERSTANDING. SAFETY MAINTAINED. WILL MONITOR.
--- NOTE | 2019-02-26 23:35 | NUR ---
SNACKS PT BROUGHT SANDWICHES AND SUGAR-FREE PUDDING PER REQUEST. PT DENIES FURTHER NEEDS AT THIS TIME. WILL MONITOR.
[2019-02-26 23:45] VITALS: BP_SYST 139
--- NOTE | 2019-02-27 01:55 | NUR ---
SLEEPING PT RESTING IN BED WITH EYES CLOSED. VISIBLE SYMMETRICAL RISE AND FALL OF CHEST TO ROOM AIR. NO S/S OF ACUTE DISTRESS, NO SOB NOTED. SAFETY PRECAUTIONS ARE IN PLACE. BED ALARM IS ON. WILL MONITOR.
--- NOTE | 2019-02-27 03:02 | NUR ---
RN ROUNDS: PT RESTING IN BED WITH EYES CLOSED. NO S/S OF DISTRESS. BREATHING IS EVEN AND EFFORTLESS TO ROOM AIR, BILATERAL RISE AND FALL OF CHEST TO ROOM AIR. SAFETY AND FALL PRECAUTIONS ARE IN PLACE. WILL MONITOR.
--- NOTE | 2019-02-27 03:44 | NUR ---
PAGED: Letitaid Dr. Lucrecia Branham Regarding orders Spoke with audrey
--- NOTE | 2019-02-27 03:49 | NUR ---
SPOKE TO DR. KELLEY REGARDING PT'S SEVERE PAIN. MORPHINE 2MG IVP Q4 PRN SEVERE PAIN WAS ORDERED. ALSO MENTIONED TO THE MD PT'S REPORT OF LOWER LEFT SACRAL PAIN. MD STATED HE WILL SEE THE PT IN THE MORNING. WILL CARRY OUT NEW ORDER.
[2019-02-27] MEDS: MORPHINE 2 MG/ML INJ. SYRINGE IVP PRN ×5 (04:07→21:36)
--- NOTE | 2019-02-27 04:07 | NUR ---
PAIN/MORPHINE PT REPORTING SEVERE PAIN. MORPHINE 2 MG IVP ADMINISTERED VIA PT'S RIGHT CHEST PORTACATH. MEDICATION ACTION AND POTENTIAL SIDE EFFECTS EXPLAINED. PT VERBALIZED UNDERSTANDING. SAFETY PRECAUTIONS ARE IN PLACE, CALL LIGHT IS WITH PT. WILL MONITOR.
[2019-02-27] MEDS: NORMAL SALINE 5 ML DISP.SYRIN IVF SCH ×6 (05:42→21:37)
--- NOTE | 2019-02-27 06:35 | NUR ---
CLOSING NOTE PT RESTING IN BED, NO VISIBLE SIGNS OF DISTRESS, BREATHING IS UNLABORED TO ROOM AIR. ALL NEEDS MET DURING SHIFT. SAFETY MAINTAINED. WILL CONTINUE TO MONITOR UNTIL PT CARE IS ENDORSED TO DAY SHIFT RN.
[2019-02-27 08:00] VITALS: BP_SYST 129
[2019-02-27 08:07] LABS: BASOPHILS % (AUTO) 0.9 % (0.0-2.0); EOSINOPHILS # (AUTO) 0.1 K/uL (0.0-0.4); HEMATOCRIT 29.1 % (36-54); HEMOGLOBIN 9.5 g/dL (14.0-18.0); LYMPHOCYTES % (AUTO) 26.1 % (20.5-51.5); MEAN CORPUSCULAR HEMOGLOBIN 32 pg (27-31); MEAN CORPUSCULAR HGB CONC 33 % (32-36); MEAN CORPUSCULAR VOLUME 98 fL (79.0-98.0); MONOCYTES # (AUTO) 0.2 K/uL (0.0-1.0); MONOCYTES % (AUTO) 4.6 % (1.7-9.3); NEUTROPHILS # (AUTO) 2.4 K/uL (1.8-7.7); NEUTROPHILS % (AUTO) 64.4 % (40.0-70.0); PLATELET COUNT (AUTO) 260 K/uL (130-430); RED BLOOD CELL COUNT(AUTO) 2.96 MIL/uL (4.2-6.2); RED CELL DISTRIBUTION WIDTH 15.2 % (9.0-15.0); WHITE BLOOD COUNT (AUTO) 3.7 K/uL (4.8-10.8)
[2019-02-27] MEDS: DOCUSATE SODIUM 100 MG CAPSULE PO SCH ×2 (08:17→20:17)
[2019-02-27] MEDS: APIXABAN 2.5 MG TABLET PO SCH ×2 (08:19→20:18)
[2019-02-27] MEDS: GABAPENTIN 300 MG CAPSULE PO SCH ×3 (08:19→20:18)
[2019-02-27] MEDS: OMEGA-3/DHA/EPA/FISH OIL 1 GM CAPSULE PO SCH (08:19)
[2019-02-27] MEDS: QUEtiapine FUMARATE 100 MG TABLET PO SCH ×2 (08:24→20:17)
[2019-02-27] MEDS: LISINOPRIL 20 MG TABLET PO SCH (08:24)
[2019-02-27] MEDS: ACYCLOVIR 400 MG TABLET PO SCH (08:25)
[2019-02-27] MEDS: CYANOCOBALAMIN 1000 mCg TABLET PO SCH (08:25)
[2019-02-27 08:26] LABS: CALCIUM 8.4 mg/dL (8.4-11.0); CREATININE 1.07 mg/dL (0.55-1.30); PHOSPHORUS 3.4 mg/dL (2.7-4.5); POTASSIUM 3.7 mmol/L (3.5-5.1)
[2019-02-27] MEDS ORDERED: MAGNESIUM 250 MG PO SCH (09:00)
[2019-02-27] MEDS ORDERED: MAG OXIDE PO SCH (09:00)
[2019-02-27] MEDS ORDERED: TURMERIC RT XT PO SCH (09:00)
[2019-02-27] MEDS ORDERED: D3 PO SCH (09:00)
[2019-02-27] MEDS ORDERED: [UNRECOGNIZED DRUG - OTHER] PO SCH (09:00)
[2019-02-27 11:24] VITALS: BP_SYST 126
--- NOTE | 2019-02-27 11:28 | NUR ---
Oncology consult called: for Dr. Mckeon, regarding multiple myeloma, ordered by Lui Castillo
[2019-02-27 15:36] VITALS: BP_SYST 127
--- NOTE | 2019-02-27 19:15 | NUR ---
OPENING NOTES Bedside report received from dayshift nurse. Patient received lying in bed, no s/s of acute distress noted. Breathing even and unlabored. Call light with patient. Will continue to monitor.
[2019-02-27] MEDS: HYDROcodone/ACETAMIN 10-325 MG TAB PO PRN (19:36)
[2019-02-27 20:00] VITALS: BP_SYST 132
--- NOTE | 2019-02-27 20:00 | NUR ---
NEW IV IV site started by Hu BARNES RN, at right forearm, 22 gauge. Patient tolerated procedure well. All needs met at this time. Will continue to monitor.
--- NOTE | 2019-02-27 21:30 | NUR ---
PAIN Patient complained of 10/10 pain. PRN medication to be administered.
--- NOTE | 2019-02-27 23:00 | NUR ---
ROUNDS Patient in bed asleep at this time. No s/s of acute distress noted. Breathing even and unlabored. Call light with patient.
[2019-02-27 23:22] VITALS: BP_SYST 126
--- NOTE | 2019-02-28 01:30 | NUR ---
PAIN Patient complained of chest pain at this time. PRN medication to be administered. Call light with patient. Will continue to monitor and reassess.
[2019-02-28] MEDS: MORPHINE 2 MG/ML INJ. SYRINGE IVP PRN ×5 (01:38→18:18)
--- NOTE | 2019-02-28 03:23 | NUR ---
ROUNDS Patient sleeping comfortably. No s/s of acute distress noted. Breathing even and unlabored. Call light with patient. Will continue to monitor.
--- NOTE | 2019-02-28 05:00 | NUR ---
ROUNDS Patient sleeping at this time. No signs of discomfort noted. Chest rise and fall even bilaterally. Call light with patient.
[2019-02-28] MEDS: NORMAL SALINE 5 ML DISP.SYRIN IVF SCH ×6 (06:35→22:00)
--- NOTE | 2019-02-28 06:36 | NUR ---
CLOSING NOTES Patient in bed asleep. No s/s of acute distress noted. Breathing even and unlabored. IV site patent, no signs of infiltration or infection noted. All needs met throughout shift. Fall and safety precautions maintained throughout shift. Will continue to monitor until patient care is endorsed to oncoming dayshift nurse.
[2019-02-28 08:28] VITALS: BP_SYST 143
--- NOTE | 2019-02-28 08:42 | NUR ---
INITIAL ROUNDS/MD Received pt AAOx4, no s/s resp distress, c/o pain to right upper arm-pt states the 2 mg Morphine is not enough-Dr. Branham here and informed-stated he will look at pt's medications. Plan of care for the day reviewed with pt-pt verbalized his understanding. Ice packs placed to pt's right upper arm. Pain management, disease process, skin and safety discussed-teach back done. Call light within reach.
[2019-02-28] MEDS: QUEtiapine FUMARATE 100 MG TABLET PO SCH ×2 (09:00→21:34)
[2019-02-28] MEDS: ACYCLOVIR 400 MG TABLET PO SCH (09:39)
[2019-02-28] MEDS: CYANOCOBALAMIN 1000 mCg TABLET PO SCH (09:39)
[2019-02-28] MEDS: GABAPENTIN 300 MG CAPSULE PO SCH ×3 (09:39→21:32)
[2019-02-28] MEDS: OMEGA-3/DHA/EPA/FISH OIL 1 GM CAPSULE PO SCH (09:39)
[2019-02-28] MEDS: DOCUSATE SODIUM 100 MG CAPSULE PO SCH ×2 (09:39→21:32)
[2019-02-28] MEDS: LISINOPRIL 20 MG TABLET PO SCH (09:40)
[2019-02-28] MEDS: APIXABAN 2.5 MG TABLET PO SCH ×2 (09:41→21:33)
[2019-02-28] MEDS ORDERED: CALCIUM 600/VIT D PO ONE (11:15)
[2019-02-28] MEDS ORDERED: ZOLEDRONIC ACID 4 MG in NS 100 ML IV ONE (11:15)
[2019-02-28 11:25] VITALS: BP_SYST 148
[2019-02-28] MEDS: HYDROcodone/ACETAMIN 10-325 MG TAB PO PRN ×2 (11:37→17:28)
--- NOTE | 2019-02-28 12:40 | NUR ---
ROUNDS Pt sitting up in bed with no s/s resp distress, pt currently talking with the social problems specialist at bedside. No changes. Call light within reach.
[2019-02-28 12:51] LABS: BASOPHILS % (AUTO) 0.5 % (0.0-2.0); EOSINOPHILS # (AUTO) 0.1 K/uL (0.0-0.4); EOSINOPHILS % (AUTO) 3.4 % (0.0-4.0); HEMATOCRIT 29.9 % (36-54); HEMOGLOBIN 9.7 g/dL (14.0-18.0); LYMPHOCYTES # (AUTO) 0.9 K/uL (1.0-5.5); LYMPHOCYTES % (AUTO) 23.6 % (20.5-51.5); MEAN CORPUSCULAR HEMOGLOBIN 32 pg (27-31); MEAN CORPUSCULAR HGB CONC 32 % (32-36); MEAN CORPUSCULAR VOLUME 98 fL (79.0-98.0); MONOCYTES # (AUTO) 0.2 K/uL (0.0-1.0); MONOCYTES % (AUTO) 5.2 % (1.7-9.3); NEUTROPHILS # (AUTO) 2.6 K/uL (1.8-7.7); NEUTROPHILS % (AUTO) 67.3 % (40.0-70.0); PLATELET COUNT (AUTO) 271 K/uL (130-430); RED BLOOD CELL COUNT(AUTO) 3.05 MIL/uL (4.2-6.2); RED CELL DISTRIBUTION WIDTH 15.3 % (9.0-15.0); WHITE BLOOD COUNT (AUTO) 3.9 K/uL (4.8-10.8)
[2019-02-28 13:07] LABS: CALCIUM 8.9 mg/dL (8.4-11.0); CHLORIDE 104 mmol/L (98-107); CREATININE 1.16 mg/dL (0.55-1.30); GFR AFRICAN AMERICAN 83 mL/min (>90); GLUCOSE 98 mg/dL (70-99); POTASSIUM 3.9 mmol/L (3.5-5.1); SODIUM SERUM 134 mmol/L (136-145); UREA NITROGEN, BLOOD 19 mg/dL (8-21)
[2019-02-28 13:08] LABS: ANION GAP < 3 (5-15)
--- NOTE | 2019-02-28 13:25 | NUR ---
Patient Insurance Clerk: FARMER GENER[employer] meet with pt. bedside. Pt was talkative and easily participated in this interview. He stated he is at the [facility], he stated, "Bone Marrow Cancer". He said is in the process of finding a PCP and Oncologist, needs glasses and clothing, uses a cane he has in his car and confirmed he is still homeless. Pt. added, his sister is his emergency contact and a replacement [employer] card is suppose to be sent to [place] [id number] [place]. [id number] [phone] When asked, pt. stated he cannot stay with his sister for a few days following d/c because too many people reside there. Pt. stated he has his car parked in the parking lot and at night he will park it near [address] and [address] ("Where the [address] use to be"). He says noone bothers him there. FARMER GENERAL shared with him some resources and explained what they were. FARMER GENERAL gave him the following resources -Directive and explained what it was as well as how to get document notarized or signed by 2 witnesses. -Outpt. mental health -Homeless assistance packet including the phone contact for [facility]ie Luo [facility]. [facility] Mental [facility] Homeless Outreach -Ph. contact for [facility]. Additionally, FARMER GENERAL left a Homeless waiver in the pt. binder Pt. did not have any other questions for FARMER GENERAL who will remain available as needed. Addendum: 02/28/19 at 1338 by Mecca King FARMER [employer] Patient Insurance Clerk: FARMER GENERAL went through the resource packet with pt. When FARMER GENERAL mentioned food stamps, pt. stated he went to the [facility] in [place]. They gave him temporary food stamps, but he has not received this service on his card. He stated he walked away with some paperwork and will follow up on his phone upon discharge.
--- NOTE | 2019-02-28 15:35 | NUR ---
ROUNDS Pt resting quietly in bed with no s/s resp distress, no c/o pain. Needs met. Call light within reach.
[2019-02-28 15:52] VITALS: BP_SYST 145
[2019-02-28] MEDS: ONDANSETRON HCL 4 MG/2 ML VIAL IVP PRN (18:30)
--- NOTE | 2019-02-28 19:05 | NUR ---
CLOSING NOTE Pt now resting quietly in bed with no further c/o nausea, pt's c/o pain now 5/10. Needs met, call light within reach.
--- NOTE | 2019-02-28 20:15 | NUR ---
MORPHINE SULFATE 2 MG IVP administer for general pain and helpful position change encouraged & tolerated , helpful .
[2019-02-28 20:16] VITALS: BP_SYST 143
[2019-02-28] MEDS: CALCIUM 600/VIT D PO SCH (21:36)
--- NOTE | 2019-02-28 22:05 | NUR ---
PATIENT AWAKE ASKING FOR FOOD JUICE & SANDWITCH PO GIVEN patient keep up right position call gallagher with patient .
--- NOTE | 2019-03-01 00:50 | NUR ---
SEROquel 400 mg po administer as ordered , patient Resting is verbally Responsive call gallagher with patient .
[2019-03-01 00:51] VITALS: BP_SYST 143
[2019-03-01 01:04] LABS: TOTAL IRON BIND. CAPACITY 209 ug/dL (250-450)
--- NOTE | 2019-03-01 01:29 | NUR ---
PATIENT REQUEST ASKING FOR SNACKS JUICE & SAND WITCHES given po tolerate .
[2019-03-01 05:00] VITALS: BP_SYST 141
[2019-03-01] MEDS: NORMAL SALINE 5 ML DISP.SYRIN IVF SCH ×6 (05:14→21:11)
[2019-03-01 06:11] LABS: BASOPHILS % (AUTO) 0.3 % (0.0-2.0); EOSINOPHILS # (AUTO) 0.1 K/uL (0.0-0.4); EOSINOPHILS % (AUTO) 3.9 % (0.0-4.0); HEMATOCRIT 29.2 % (36-54); HEMOGLOBIN 9.4 g/dL (14.0-18.0); LYMPHOCYTES # (AUTO) 0.9 K/uL (1.0-5.5); LYMPHOCYTES % (AUTO) 24.5 % (20.5-51.5); MEAN CORPUSCULAR HEMOGLOBIN 31 pg (27-31); MEAN CORPUSCULAR HGB CONC 32 % (32-36); MEAN CORPUSCULAR VOLUME 97 fL (79.0-98.0); MONOCYTES # (AUTO) 0.2 K/uL (0.0-1.0); MONOCYTES % (AUTO) 6.9 % (1.7-9.3); NEUTROPHILS # (AUTO) 2.3 K/uL (1.8-7.7); NEUTROPHILS % (AUTO) 64.4 % (40.0-70.0); PLATELET COUNT (AUTO) 285 K/uL (130-430); RED CELL DISTRIBUTION WIDTH 15.5 % (9.0-15.0); WHITE BLOOD COUNT (AUTO) 3.6 K/uL (4.8-10.8)
[2019-03-01 06:12] LABS: CREATININE 1.39 mg/dL (0.55-1.30); POTASSIUM 3.7 mmol/L (3.5-5.1)
--- NOTE | 2019-03-01 08:00 | NUR ---
initial notes rec patient awake alert with hob elevated and resp easy and unlabored.no sob noted. bed to the lowest position and siderails up and locked. call light within reached and knows when to call for assistance. will continue to monitor patient.
[2019-03-01] MEDS: QUEtiapine FUMARATE 100 MG TABLET PO SCH ×3 (09:00→21:11)
[2019-03-01] MEDS: CYANOCOBALAMIN 1000 mCg TABLET PO SCH (10:09)
[2019-03-01] MEDS: OMEGA-3/DHA/EPA/FISH OIL 1 GM CAPSULE PO SCH (10:09)
[2019-03-01] MEDS: GABAPENTIN 300 MG CAPSULE PO SCH ×3 (10:09→21:09)
[2019-03-01] MEDS: ACYCLOVIR 400 MG TABLET PO SCH (10:09)
[2019-03-01] MEDS: DOCUSATE SODIUM 100 MG CAPSULE PO SCH ×2 (10:09→21:09)
[2019-03-01] MEDS: LISINOPRIL 20 MG TABLET PO SCH (10:10)
[2019-03-01] MEDS: APIXABAN 2.5 MG TABLET PO SCH ×2 (10:11→21:10)
[2019-03-01] MEDS: CALCIUM 600/VIT D PO SCH ×2 (10:20→21:09)
--- NOTE | 2019-03-01 10:30 | NUR ---
rounds ambulated by p.t at bedside and hallway and jesus well. no sob noted. call light within reached.
[2019-03-01] MEDS: MORPHINE 2 MG/ML INJ. SYRINGE IVP PRN ×3 (11:15→21:15)
[2019-03-01] MEDS: ONDANSETRON HCL 4 MG/2 ML VIAL IVP PRN (11:20)
--- NOTE | 2019-03-01 12:00 | NUR ---
rounds resting comfortably. no sob noted. ambulates at intervals at bedside. call light within reached.
[2019-03-01 12:34] VITALS: BP_SYST 124
--- NOTE | 2019-03-01 15:00 | NUR ---
rounds attempted to use the sink to oooooooooooooooooooooooooooooooooooooooooooooooooooooooooooooooooooooooooooo rounds attempted to use the br and legs become weak and kneeled to the floor instead with 3 nurses. was put back to bed . no injuries noted. \ oooooooooooooooooooooooooooooooooooooooooooooooooooooooooooooooooooooooooooooooooooooooooooo ooooooooooooooooooooooooooooooooooooooooooo
[2019-03-01] MEDS: HYDROcodone/ACETAMIN 10-325 MG TAB PO PRN (15:41)
[2019-03-01 16:16] VITALS: BP_SYST 153
[2019-03-01] MEDS ORDERED: CYANOCOBALAMIN 1000 MCG/ML VIAL IM ONE (16:45)
--- NOTE | 2019-03-01 19:00 | NUR ---
closing notes sleeping at thisitme. bed to the lowest position and side rails up and locked. stable. needs attended.
[2019-03-01 20:12] VITALS: BP_SYST 152
--- NOTE | 2019-03-01 20:22 | NUR ---
PATIENT AWAKE SITTING UP IN BED FALL MEASURES INTACT , PROCEDURES EXPLAINED PATIENT ON REGULAR PO DIET AGAIN ASKING FOR SNACKS JUICE & SAND WITCH GIVEN .
--- NOTE | 2019-03-01 22:11 | NUR ---
SEROquel 400 MG PO given as ordered for agitation & helpful .
--- NOTE | 2019-03-01 22:12 | NUR ---
MORPHINE SULFATE 2 MG IVP administer for GENERAL pain 03/02 assist for position change helpful .
[2019-03-02 00:35] VITALS: BP_SYST 122
--- NOTE | 2019-03-02 00:42 | NUR ---
HOURLY ROUNDING patient Resting verbally responsive call gallagher with PT MORPHINE helpful for acute pain .
[2019-03-02] MEDS: ONDANSETRON HCL 4 MG/2 ML VIAL IVP PRN ×2 (02:36→18:50)
[2019-03-02] MEDS: MORPHINE 2 MG/ML INJ. SYRINGE IVP PRN ×5 (02:37→22:59)
--- NOTE | 2019-03-02 02:58 | NUR ---
ZOFRAN 4 NG IVP GIVEN NAUSEA & HELPFUL .
--- NOTE | 2019-03-02 02:59 | NUR ---
MORPHINE SULFATE 2 MG IVP GIVEN FOR PAIN & HELPFUL .
[2019-03-02] MEDS: NORMAL SALINE 5 ML DISP.SYRIN IVF SCH ×6 (05:35→21:00)
[2019-03-02 06:56] LABS: BASOPHILS % (AUTO) 0.3 % (0.0-2.0); EOSINOPHILS # (AUTO) 0.1 K/uL (0.0-0.4); EOSINOPHILS % (AUTO) 2.9 % (0.0-4.0); HEMATOCRIT 30.7 % (36-54); LYMPHOCYTES # (AUTO) 0.7 K/uL (1.0-5.5); LYMPHOCYTES % (AUTO) 15.9 % (20.5-51.5); MEAN CORPUSCULAR HEMOGLOBIN 32 pg (27-31); MEAN CORPUSCULAR HGB CONC 33 % (32-36); MEAN CORPUSCULAR VOLUME 98 fL (79.0-98.0); MONOCYTES # (AUTO) 0.3 K/uL (0.0-1.0); MONOCYTES % (AUTO) 6.8 % (1.7-9.3); NEUTROPHILS # (AUTO) 3.2 K/uL (1.8-7.7); NEUTROPHILS % (AUTO) 74.1 % (40.0-70.0); PLATELET COUNT (AUTO) 285 K/uL (130-430); RED BLOOD CELL COUNT(AUTO) 3.14 MIL/uL (4.2-6.2); RED CELL DISTRIBUTION WIDTH 15.2 % (9.0-15.0); WHITE BLOOD COUNT (AUTO) 4.4 K/uL (4.8-10.8)
[2019-03-02 07:29] LABS: CREATININE 1.22 mg/dL (0.55-1.30)
[2019-03-02 07:35] VITALS: BP_SYST 144
[2019-03-02] MEDS: GABAPENTIN 300 MG CAPSULE PO SCH ×3 (08:54→20:59)
[2019-03-02] MEDS: QUEtiapine FUMARATE 100 MG TABLET PO SCH ×3 (08:54→20:59)
[2019-03-02] MEDS: ACYCLOVIR 400 MG TABLET PO SCH (08:54)
[2019-03-02] MEDS: CALCIUM 600/VIT D PO SCH ×2 (08:55→20:59)
[2019-03-02] MEDS: DOCUSATE SODIUM 100 MG CAPSULE PO SCH ×2 (08:55→20:59)
[2019-03-02] MEDS: CYANOCOBALAMIN 1000 mCg TABLET PO SCH (08:55)
[2019-03-02] MEDS: OMEGA-3/DHA/EPA/FISH OIL 1 GM CAPSULE PO SCH (08:55)
[2019-03-02] MEDS: LISINOPRIL 20 MG TABLET PO SCH (08:56)
[2019-03-02] MEDS: APIXABAN 2.5 MG TABLET PO SCH ×2 (08:56→21:00)
--- NOTE | 2019-03-02 09:30 | NUR ---
AT 0910 PT HAD A GUIDED/ASSISTED FALL IN PATIENT'S ROOM. POST FALL HUDDLE DONE, MD WILL BE MADE AWARE. NO NOTICEABLE INJURY.
--- NOTE | 2019-03-02 10:27 | NUR ---
PT note Patient refusing therapy at this time, will try again tomorrow.
[2019-03-02 11:25] VITALS: BP_SYST 128
--- NOTE | 2019-03-02 12:23 | NUR ---
DR KELLEY WAS HERE , SEEN AND SPOKE WITH PT. MD WAS MADE AWARE OF THE GUIDED FALL THE PT HAD THIS AM. NO NEW ORDERS. PT'S SISTER CALLED AND EXPLAINED TO HER THE DC PLAN TO SNF.
--- NOTE | 2019-03-02 13:22 | NUR ---
Discharge Planning: DCP faxed pt referral to [facility] (f [phone] p [phone]) DCP to follow up
--- NOTE | 2019-03-02 14:28 | NUR ---
INTAKE NURSE FROM ROHINI MEDEL HERE TO EVAL PATIENT.
--- NOTE | 2019-03-02 14:43 | NUR ---
PT GIVEN MORPHINE FOR CHRONIC BACK AND CHEST PAIN. WILL MONITOR PATIENT.
[2019-03-02 15:19] VITALS: BP_SYST 122
--- NOTE | 2019-03-02 17:01 | NUR ---
PATIENT TRANSFERRED TO ROOM 105A BY BED TO BE NEAR THE NURSING STATION. ALL BELONGINGS MOVED WITH PATIENT.
--- NOTE | 2019-03-02 18:51 | NUR ---
CLOSING NOTES PT HAD A GUIDED/ASSISTED FALL WHEN AMBULATING TO BED, RIR DONE. VITALS WNL NO FEVER. GIVEN PAIN MEDICATIONS AND NAUSEA MEDICATIONS OTHERWISE PATIENT IS STABLE. WILL ENDORSE TO NIGHT NURSE.
--- NOTE | 2019-03-02 19:30 | NUR ---
Initial Notes Received handoff report from offgoing nurse Dixon-KEISHA at the bedside. Patient is aaox4, resting comfortably in bed. Patient right forearm #22g intact, dressing clean and dry, saline locked. Patient also has a right upper chest portacath, saline locked, dressing clean and dry. Bed is locked, in the lowest position, 2x side rails up. Patient refuses bed alarm at this time. States that he will call for assistance if needed. Call light is within reach. Will continue with plan of care.
[2019-03-02 20:00] VITALS: BP_SYST 123
--- NOTE | 2019-03-02 21:24 | NUR ---
Patient aware that a stool sample will be needed for occult blood testing. Stated he will call before he needs to have a bowel movement so we can provide him assistance.
--- NOTE | 2019-03-02 22:59 | NUR ---
Patient complaining of lower back pain 03/02. Stated that he has had this aching pain for a long time. Morphine provided PRN per MD order, see eMAR for details. Also provided patient with two wheat turkey sandwich, 2 chocolate puddings, 2 shirin crackers, and ice per patient request. Bed is locked, in the lowest position, 2x side rails up. Patient refuses bed alarm. Call light within reach. Encouraged patient to call for assistance.
--- NOTE | 2019-03-02 23:52 | NUR ---
Patient resting in bed, eyes closed. Breathing even and unlabored, visible chest rise and fall noted. No SOB, no acute distress, no signs of pain or facial grimacing noted. Bed is locked, in the lowest position, 2x side rails up. Call light within reach.
[2019-03-03 00:09] VITALS: BP_SYST 106
--- NOTE | 2019-03-03 02:30 | NUR ---
patient resting in bed. sleeping. no sob, no acute distress, no signs of pain. breathing even and unlabored. visible chest rise and fall noted. stable.
--- NOTE | 2019-03-03 04:56 | NUR ---
PATIENT RESTING IN BED, EYES CLOSED. BREATHING EVEN AND UNLABORED. NO SOB, NO ACUTE DISTRESS, NO SIGNS OF PAIN OR FACIAL GRIMACING NOTED. CALL LIGHT WITHIN REACH.
[2019-03-03] MEDS: NORMAL SALINE 5 ML DISP.SYRIN IVF SCH ×6 (05:13→21:42)
--- NOTE | 2019-03-03 06:34 | NUR ---
Closing Notes Patient is resting comfortably in bed, eyes closed. Breathing even and unlabored with visible chest rise and fall noted. No SOB, no acute distress, no signs of pain or facial grimacing noted. IV site intact, dressing clean and dry,saline locked. Portacath site intact, dressing clean and dry, saline locked. Bed is locked, in the lowest position, 2x side rails up, bed alarm is on. Call light is within reach. Fall and safety precautions maintained. All needs have been met during this shift.
[2019-03-03] MEDS: MORPHINE 2 MG/ML INJ. SYRINGE IVP PRN ×4 (06:50→19:46)
[2019-03-03] MEDS: ONDANSETRON HCL 4 MG/2 ML VIAL IVP PRN ×2 (06:53→15:33)
[2019-03-03 07:38] VITALS: BP_SYST 101
[2019-03-03 07:48] LABS: BASOPHILS % (AUTO) 0.5 % (0.0-2.0); EOSINOPHILS # (AUTO) 0.1 K/uL (0.0-0.4); EOSINOPHILS % (AUTO) 3.4 % (0.0-4.0); HEMATOCRIT 31.4 % (36-54); HEMOGLOBIN 10.3 g/dL (14.0-18.0); LYMPHOCYTES # (AUTO) 0.8 K/uL (1.0-5.5); LYMPHOCYTES % (AUTO) 20.1 % (20.5-51.5); MEAN CORPUSCULAR HEMOGLOBIN 32 pg (27-31); MEAN CORPUSCULAR HGB CONC 33 % (32-36); MEAN CORPUSCULAR VOLUME 98 fL (79.0-98.0); MONOCYTES # (AUTO) 0.3 K/uL (0.0-1.0); NEUTROPHILS # (AUTO) 2.8 K/uL (1.8-7.7); PLATELET COUNT (AUTO) 304 K/uL (130-430); RED CELL DISTRIBUTION WIDTH 15.9 % (9.0-15.0); WHITE BLOOD COUNT (AUTO) 4.1 K/uL (4.8-10.8)
[2019-03-03 07:54] LABS: CALCIUM 8.6 mg/dL (8.4-11.0); CHLORIDE 102 mmol/L (98-107); CREATININE 1.48 mg/dL (0.55-1.30); GLUCOSE 114 mg/dL (70-99); POTASSIUM 4.3 mmol/L (3.5-5.1); SODIUM SERUM 131 mmol/L (136-145); UREA NITROGEN, BLOOD 34 mg/dL (8-21)
[2019-03-03 07:56] LABS: ANION GAP < 3 (5-15); GFR AFRICAN AMERICAN 62 mL/min (>90)
--- NOTE | 2019-03-03 08:00 | NUR ---
Note Pt sitting up in bed eating his breakfast. No SOB/resp distress or pain/discomfort noted at this time. IV in right forearm intact and patent, right upper chest pippa cath intact and patent at this time as well. No needs noted at this time. Pt next to nurses' station for close observation for needs and care. Call light within reach. Addendum: 03/03/19 at 1036 by Esha Velazquez RN Pt refused to have bed alarm on. Pt states I always call when getting OOB to go to restroom.
[2019-03-03] MEDS: GABAPENTIN 300 MG CAPSULE PO SCH ×3 (08:38→21:40)
[2019-03-03] MEDS: DOCUSATE SODIUM 100 MG CAPSULE PO SCH ×2 (08:39→21:40)
[2019-03-03] MEDS: CYANOCOBALAMIN 1000 mCg TABLET PO SCH (08:39)
[2019-03-03] MEDS: ACYCLOVIR 400 MG TABLET PO SCH (08:39)
[2019-03-03] MEDS: OMEGA-3/DHA/EPA/FISH OIL 1 GM CAPSULE PO SCH (08:39)
[2019-03-03] MEDS: APIXABAN 2.5 MG TABLET PO SCH ×2 (08:40→21:41)
[2019-03-03] MEDS: QUEtiapine FUMARATE 100 MG TABLET PO SCH ×2 (08:41→21:40)
[2019-03-03] MEDS: LISINOPRIL 20 MG TABLET PO SCH (08:41)
[2019-03-03] MEDS: CALCIUM 600/VIT D PO SCH ×2 (10:27→21:40)
--- NOTE | 2019-03-03 10:30 | NUR ---
Note Pt resting in bed. No needs noted at this time. No SOB/resp distress or pain/discomfort noted at this time. Pt was assisted to restroom with FWW and RN by side. Pt tolerated ambulation well at this time. Did have right hip pain. Call light within reach.
--- NOTE | 2019-03-03 11:38 | NUR ---
Catering Administrative Assistant Note Received a call from Gracie Luo, Department of Mental Health homeless outreach, . She would like to follow up with patient and would like a call once SNF discharge plans are arranged.
--- NOTE | 2019-03-03 12:20 | NUR ---
Discharge Planning: DCP followed up with [facility] (f [phone] p [phone]) Per Darlene no male beds available. DCP followed up with Karen from [facility], packet given to her by . Per Karen DON has looked over clinically looks good, before a confirm on accepting the mainframe systems administrator has to review and approve. DCP to follow up. DCP faxed referral to [facility] (f [phone] p [phone]) and [facility] (f [phone] p [phone]) DCP to follow up. Addendum: 03/03/19 at 1623 by Seema Crisostomo DP [facility] (f [phone] p [phone]) declined pt [facility] (f [phone] p [phone])declined pt DCP faxed to [facility] (f [phone] p [phone] and [facility] ([phone] p [phone]) DCP to follow up.
[2019-03-03 12:54] VITALS: BP_SYST 100
--- NOTE | 2019-03-03 14:05 | NUR ---
Note After finishing his lunch, pt fell asleep at this time. No needs noted at this time. Call light within reach.
--- NOTE | 2019-03-03 16:11 | NUR ---
Dietitian Recommendations * Recommend continuing regular diet LP, RD Please refer to Nutrition Assessment for details. Addendum: 03/03/19 at [address] Amended: Links added.
[2019-03-03 16:38] VITALS: BP_SYST 106
--- NOTE | 2019-03-03 18:30 | NUR ---
Note Pt resting in bed after eating his dinner. No SOB/resp distress or severe hip pain/discomfort noted at this time. IV in right hand intact and patent. Pt was checked on q1' and PRN all shift for needs and care. Pt maintained with safety precautions all shift. Pt stable at this time, no needs noted. Call light within reach.
--- NOTE | 2019-03-03 19:46 | NUR ---
Opening notes Received report. Patient resting in bed. Complaining of pain to lower back 10/10. VSS. PRN pain medications given. Educated the action and side effects of medications. Patient verbalized understanding and tolerated well. No signs of allergic reaction noted. IV patent and intact, saline locked. Right chest portacath noted. Emptied 400 ml from urinal. Patient refusing bed alarm, states he will call when he needs to get up. Call light with the patient. Safety precautions in place.
[2019-03-03 20:00] VITALS: BP_SYST 104
--- NOTE | 2019-03-03 21:45 | NUR ---
Medications given. Educated the action and side effects of medications. Patient verbalized understanding and tolerated well. No signs of allergic reaction noted. Provided patient with shirin crackers. No other needs. Call light with the patient. Safety precautions in place.
--- NOTE | 2019-03-04 | NUR ---
Sleeping No signs of distress noted. Breathing even and unlabored. Call light with the patient. Safety precautions in place.
[2019-03-04 00:44] VITALS: BP_SYST 104
--- NOTE | 2019-03-04 02:06 | NUR ---
Sleeping No signs of distress noted. Breathing even and unlabored. Safety precautions in place. Emptied 400 ml from urinal.
[2019-03-04] MEDS: MORPHINE 2 MG/ML INJ. SYRINGE IVP PRN ×3 (03:14→12:11)
--- NOTE | 2019-03-04 03:20 | NUR ---
Pain Patient complains of 10/10 pain to lower back. PRN pain medication given. Patient tolerated well. No signs of allergic reaction. Provided patient with snacks. Emptied 800 ml from urinal. No other needs. Call light with the patient. Safety precautions in place.
--- NOTE | 2019-03-04 04:32 | NUR ---
Sleeping No signs of distress noted. Breathing even and unlabored. Call light with the patient. Safety precautions in place.
[2019-03-04] MEDS: NORMAL SALINE 5 ML DISP.SYRIN IVF SCH ×4 (06:00→13:05)
--- NOTE | 2019-03-04 06:19 | NUR ---
Closing notes Patient asleep in bed. No signs of distress noted. Breathing even and unlabored. IV patent and intact, saline locked. Right chest portacath in place. All needs met throughout the shift. Call light with the patient. Safety precautions in place. Will endorse care to day shift RN.
[2019-03-04 06:48] LABS: BASOPHILS % (AUTO) 0.4 % (0.0-2.0); EOSINOPHILS # (AUTO) 0.2 K/uL (0.0-0.4); EOSINOPHILS % (AUTO) 4.9 % (0.0-4.0); HEMATOCRIT 30.2 % (36-54); HEMOGLOBIN 9.9 g/dL (14.0-18.0); LYMPHOCYTES % (AUTO) 28.9 % (20.5-51.5); MEAN CORPUSCULAR HEMOGLOBIN 32 pg (27-31); MEAN CORPUSCULAR HGB CONC 33 % (32-36); MEAN CORPUSCULAR VOLUME 98 fL (79.0-98.0); MONOCYTES # (AUTO) 0.4 K/uL (0.0-1.0); MONOCYTES % (AUTO) 10.7 % (1.7-9.3); NEUTROPHILS # (AUTO) 1.9 K/uL (1.8-7.7); NEUTROPHILS % (AUTO) 55.1 % (40.0-70.0); PLATELET COUNT (AUTO) 289 K/uL (130-430); RED BLOOD CELL COUNT(AUTO) 3.07 MIL/uL (4.2-6.2); RED CELL DISTRIBUTION WIDTH 15.2 % (9.0-15.0); WHITE BLOOD COUNT (AUTO) 3.5 K/uL (4.8-10.8)
[2019-03-04 07:04] LABS: CALCIUM 8.6 mg/dL (8.4-11.0); CREATININE 1.44 mg/dL (0.55-1.30); POTASSIUM 3.7 mmol/L (3.5-5.1)
[2019-03-04 07:54] VITALS: BP_SYST 116
--- NOTE | 2019-03-04 08:00 | NUR ---
Note Pt sitting up in bed eating his breakfast at this time. No SOB/resp distress noted at this time. Pt has severe pain in left hip and pain medication requested at this time. IV in right hand intact and patent at this time. Call light within reach.
[2019-03-04] MEDS: LISINOPRIL 20 MG TABLET PO SCH (08:10)
[2019-03-04] MEDS: GABAPENTIN 300 MG CAPSULE PO SCH (08:10)
[2019-03-04] MEDS: ACYCLOVIR 400 MG TABLET PO SCH (08:10)
[2019-03-04] MEDS: CALCIUM 600/VIT D PO SCH (08:10)
[2019-03-04] MEDS: DOCUSATE SODIUM 100 MG CAPSULE PO SCH (08:10)
[2019-03-04] MEDS: CYANOCOBALAMIN 1000 mCg TABLET PO SCH (08:11)
[2019-03-04] MEDS: OMEGA-3/DHA/EPA/FISH OIL 1 GM CAPSULE PO SCH (08:11)
[2019-03-04] MEDS: APIXABAN 2.5 MG TABLET PO SCH (08:12)
[2019-03-04] MEDS: QUEtiapine FUMARATE 100 MG TABLET PO SCH (08:13)
--- NOTE | 2019-03-04 11:00 | NUR ---
Note Pt had ambulated to restroom with FWW, to have bowel movement. When pt was returning to bed with FWW from restroom, pain from left hip was excruciating and pt was very weak in walking back. Pt was informed he needs to use BSC from this time forward as he does not have the strength to walk to restroom and back to bed at this time. Pt in agreement at this time. BSC next to pt on left side of bed. Pt's preference. No needs noted at this time. Pt resting in bed at this time. Call light within reach.
[2019-03-04 11:35] VITALS: BP_SYST 122
--- NOTE | 2019-03-04 13:41 | NUR ---
Discharge Planning: DCP faxed pt referral to [facility] (f [phone] p [phone]) DCP to follow up
--- NOTE | 2019-03-04 14:20 | NUR ---
Note Pt seen and assessed by Dr Branham at bedside at this time. Orders written and carried out at this time. Call light within reach. No needs noted at this time.
--- NOTE | 2019-03-04 15:00 | NUR ---
Note Pt was told by Dr Branham he is being discharged from the hospital today. Pt needs to followup with Dr Mckeon within a week at his office. Pt got OOB and started getting dressed and packing all his belongings. Pt requested right upper chest pippa cath tubing be dc'd and right hand IV be dc'd now. Right upper chest pippa cath tubing was dc'd and dressing applied. Right hand IV was dc'd - site benign, no swelling/redness/bleeding/drainage or tenderness noted at site. No SOB/resp distress or severe pain/discomfort was noted. Pt stable. Pt ambulated to restroom and back to bed independently with steady gait and no FWW. Pt checked side table and drawers for belongings. No needs noted at this time. Call light within reach.
[2019-03-04] MEDS ORDERED: OXYC-580 PO (15:01)
[2019-03-04 15:08] VITALS: BP_SYST 120
--- NOTE | 2019-03-04 15:15 | NUR ---
Note Pt was given discharge instructions and prescription for Oxycodone. Questions/concerns were answered at this time. No needs noted.
--- NOTE | 2019-03-04 15:20 | NUR ---
Note Pt off the floor via wheelchair with all his belongings and discharge paperwork/prescription to private car. Pt stable at this time.
--- NOTE | 2019-03-04 15:45 | NUR ---
Discharge barrier: Pt. has medical insurance, homeless , lives in his car. The patiet will snf placement for PT and disease management for multiple myeloma, back and shoulder. Pt is able to ambulate 20 feet with FWW. >> E-mailed to Miguel/Perla to expedite signing the pt up for straight medical benefits.
[2019-03-05 13:06] LABS: FOLATE (FOLIC ACID) 8.8 ng/mL (>3.0)
== END 2019-03-04 15:20 | disposition home or self-care (01) | DRG 203 ==
LOC: SED 09:10 → STU 12:51 → SMU 02-27 20:46
PROVIDERS: ADMIT Preventive Medicine Preventive Medicine/Occupational Environmental Medicine; ATTEND Preventive Medicine Preventive Medicine/Occupational Environmental Medicine
DX: M94.0 Chondrocostal junction syndrome [Tietze] (principal); E43 Unspecified severe protein-calorie malnutrition; N17.9 Acute kidney failure, unspecified; I25.10 Atherosclerotic heart disease of native coronary artery without angina pectoris; C90.00 Multiple myeloma not having achieved remission; Z68.33 Body mass index [BMI] 33.0-33.9, adult; E83.51 Hypocalcemia; E87.1 Hypo-osmolality and hyponatremia; M54.9 Dorsalgia, unspecified; D72.819 Decreased white blood cell count, unspecified; M25.511 Pain in right shoulder; M54.5 Low back pain; R73.9 Hyperglycemia, unspecified; R26.2 Difficulty in walking, not elsewhere classified; D64.9 Anemia, unspecified; I12.9 Hypertensive chronic kidney disease with stage 1 through stage 4 chronic kidney disease, or unspecified chronic kidney disease; G89.29 Other chronic pain; N18.9 Chronic kidney disease, unspecified; W18.30XA Fall on same level, unspecified, initial encounter; Y93.89 Activity, other specified; Y92.89 Other specified places as the place of occurrence of the external cause; Y99.8 Other external cause status; Y92.481 Parking lot as the place of occurrence of the external cause; Z59.0 Homelessness; Z82.49 Family history of ischemic heart disease and other diseases of the circulatory system
CPT/HCPCS: 36415; 71045; 72100-TC; 73030; 73521; 80048; 80053; 81000-TC; 82150-TC; 82272; 82550-TC; 82607; 82728; 82746; 83540-TC; 83550-TC; 83605; 83690-TC; 83735-TC; 83880; 83921; 84100-TC; 84484; 85025; 85610-TC; 85730-TC; 87040-TC; 87086; 93005; 96361; 96374; 96376; 97110-GP; 97112-GP; 97116-GP; 97530-GP; 99285; G0378; J2270; J2405; J3420; Q0164

== ENCOUNTER 2019-03-14 10:40 | Emergency (ER) | payer MEDICAID ==
[~2019-03-14] VITALS: Ht 195.6 cm; Wt 127.0 kg
[~2019-03-14 10:40] MED LIST changes: +APIX5TAB4 PO; +CYAN100070 PO; +GABA-531 PO; -MED4 PO; +METH2TAB PO; +OMEG1CAP PO; +OXYC-580 PO; -PYRI100T2 PO; +VIT A PO; +Vit B6 PO; +[UNRECOGNIZED DRUG - OTHER]; +magnesium PO
[2019-03-14 10:54] VITALS: BP_SYST 167
[2019-03-14] MEDS ORDERED: OXYCODONE HCL 40 MG PO ONE (11:30)
[2019-03-14] MEDS ORDERED: oxyCODONE HCL 10 MG TAB.ER.12H PO ONE (12:00)
== END 2019-03-14 12:21 | disposition home or self-care (01) ==
LOC: SED 10:40
DX: C90.00 Multiple myeloma not having achieved remission (principal); R07.89 Other chest pain; M54.5 Low back pain; I10 Essential (primary) hypertension; Z86.79 Personal history of other diseases of the circulatory system; Z79.899 Other long term (current) drug therapy
CPT/HCPCS: 99282

== ENCOUNTER 2019-03-16 19:09 | Inpatient (IN) | payer MEDICAID ==
[~2019-03-16] VITALS: Ht 195.6 cm; Wt 132.5 kg
[2019-03-16 19:22] VITALS: BP_SYST 144
[2019-03-16 20:32] LABS: BASOPHILS % (AUTO) 0.6 % (0.0-2.0); EOSINOPHILS # (AUTO) 0.1 K/uL (0.0-0.4); EOSINOPHILS % (AUTO) 3.2 % (0.0-4.0); HEMATOCRIT 32.3 % (36-54); HEMOGLOBIN 10.7 g/dL (14.0-18.0); LYMPHOCYTES # (AUTO) 0.9 K/uL (1.0-5.5); LYMPHOCYTES % (AUTO) 20.7 % (20.5-51.5); MEAN CORPUSCULAR HEMOGLOBIN 33 pg (27-31); MEAN CORPUSCULAR HGB CONC 33 % (32-36); MEAN CORPUSCULAR VOLUME 99 fL (79.0-98.0); MONOCYTES # (AUTO) 0.3 K/uL (0.0-1.0); MONOCYTES % (AUTO) 5.8 % (1.7-9.3); NEUTROPHILS # (AUTO) 3.1 K/uL (1.8-7.7); NEUTROPHILS % (AUTO) 69.7 % (40.0-70.0); PLATELET COUNT (AUTO) 351 K/uL (130-430); RED BLOOD CELL COUNT(AUTO) 3.25 MIL/uL (4.2-6.2); RED CELL DISTRIBUTION WIDTH 15.2 % (9.0-15.0); WHITE BLOOD COUNT (AUTO) 4.4 K/uL (4.8-10.8)
[2019-03-16 20:42] LABS: ANION GAP 7 (5-15); CALCIUM 8.8 mg/dL (8.4-11.0); CHLORIDE 105 mmol/L (98-107); GLUCOSE 95 mg/dL (70-99); POTASSIUM 3.6 mmol/L (3.5-5.1); SODIUM SERUM 136 mmol/L (136-145); UREA NITROGEN, BLOOD 14 mg/dL (8-21)
[2019-03-16 20:48] LABS: GFR AFRICAN AMERICAN 61 mL/min (>90)
[2019-03-16 20:51] LABS: ALANINE AMINOTRANSFERASE 15 U/L (12-78); ALBUMIN 2.9 g/dL (3.4-4.8); ASPARTATE AMINOTRANSFERASE 10 U/L (10-37); TOTAL BILIRUBIN 0.3 mg/dL (0.0-1.0)
[2019-03-16] MEDS ORDERED: MORPHINE 2 MG/ML INJ. SYRINGE IM ONE (21:00)
[2019-03-16 22:26] LABS: BILIRUBIN,URINE NEGATIVE (NEGATIVE); CLARITY/URINE CLEAR (CLEAR); COLOR,URINE YELLOW (YELLOW); GLUCOSE,URINE NEGATIVE (NEGATIVE); KETONES,URINE TRACE (NEGATIVE); LEUKOCYTE ESTERASE ,URINE NEGATIVE (NEGATIVE); NITRITE, URINE NEGATIVE (NEGATIVE); PH,URINE 5.5 (5.0-8.0); PROTEIN URINE NEGATIVE (NEGATIVE)
[2019-03-16 22:29] LABS: BLOOD, URINE TRACE (NEGATIVE)
[2019-03-16 22:44] LABS: BACTERIA,URINE FEW /HPF (None Seen); MUCUS,URINE 1+ /LPF (None Seen); RBC,URINE 0-3 /HPF (0-3); WBC,URINE 0-3 /HPF (0-3)
[2019-03-17] MEDS ORDERED: MORPHINE 4 MG/ML INJ. SYRINGE IVP ONE (00:15)
[2019-03-17 02:08] VITALS: BP_SYST 119
[2019-03-17 02:20] VITALS: BP_SYST 120
[2019-03-17 08:00] VITALS: BP_SYST 137
[2019-03-17] MEDS ORDERED: traMADol HCL HCL 50 MG TABLET (ULTRAM) PO PRN (10:00)
[2019-03-17 12:32] VITALS: BP_SYST 145
[2019-03-17 17:22] VITALS: BP_SYST 133
[2019-03-17] MEDS: oxyCODONE HCL 5 MG TABLET PO PRN (18:33)
[2019-03-17] MEDS: GABAPENTIN 300 MG CAPSULE PO SCH ×2 (18:35→21:33)
[2019-03-17 20:13] VITALS: BP_SYST 135
[2019-03-17] MEDS: DOCUSATE SODIUM 100 MG CAPSULE PO SCH (21:33)
[2019-03-17] MEDS: QUEtiapine FUMARATE 100 MG TABLET PO SCH (21:33)
[2019-03-18 00:40] VITALS: BP_SYST 122
[2019-03-18] MEDS ORDERED: ACYCLOVIR 400 MG TABLET PO SCH (09:00)
[2019-03-18] MEDS ORDERED: LISINOPRIL 20 MG TABLET PO SCH (09:00)
[2019-03-18] MEDS: QUEtiapine FUMARATE 100 MG TABLET PO SCH ×2 (09:00→09:23)
[2019-03-18] MEDS: DOCUSATE SODIUM 100 MG CAPSULE PO SCH (09:23)
[2019-03-18] MEDS: oxyCODONE HCL 5 MG TABLET PO PRN (09:25)
[2019-03-18] MEDS: GABAPENTIN 300 MG CAPSULE PO SCH (09:25)
[2019-03-18] MEDS ORDERED: LORazepam 2 MG/ML VIAL IVP ONE (09:45)
[2019-03-18 12:45] VITALS: BP_SYST 147
[2019-03-18 16:21] VITALS: BP_SYST 147
== END 2019-03-18 17:00 | disposition home or self-care (01) | DRG 691 ==
LOC: SED 19:09 → STU 03-17 01:04 → SMU 03-17 01:15
PROVIDERS: ADMIT Family Medicine; ATTEND Family Medicine
DX: C90.00 Multiple myeloma not having achieved remission (principal); N17.0 Acute kidney failure with tubular necrosis; R29.6 Repeated falls; I10 Essential (primary) hypertension; Z91.81 History of falling; Z79.899 Other long term (current) drug therapy; E44.1 Mild protein-calorie malnutrition
CPT/HCPCS: 36415; 71045; 72100-TC; 72170-TC; 78579; 78580-TC; 80053; 81000-TC; 82550-TC; 84484; 85025; 85379; 87081; 93005; 96374; 96375; 99285; A9539; A9540; J2060; J2270

== ENCOUNTER 2019-07-30 06:27 | Inpatient (IN) | payer MEDICAID ==
[~2019-07-30] VITALS: Ht 195.6 cm; Wt 126.7 kg
[2019-07-30 06:31] VITALS: BP_SYST 170
--- NOTE | 2019-07-30 06:31 | NUR ---
Pt BIB W/C, placed to ER bed 06. Pt c/o generalized body aches, left hip pain, and swelling to bilat feet x 2 days. Pt barefoot and states that he lives in his car.
--- NOTE | 2019-07-30 06:35 | NUR ---
Pt diaphoretic. Placed on court recording monitor, Dr. Rivera notified.
--- NOTE | 2019-07-30 06:37 | NUR ---
Dr. Rivera at bedside.
[2019-07-30] MEDS ORDERED: MORPHINE 4 MG/ML INJ. SYRINGE IVP ONE ×2 (06:45→15:00)
[2019-07-30] MEDS ORDERED: NACL 0.9% 1,000 ML IV ONE (06:45)
[2019-07-30 07:15] LABS: BASOPHILS % (AUTO) 0.3 % (0.0-2.0); EOSINOPHILS # (AUTO) 0.1 K/uL (0.0-0.4); HEMATOCRIT 31.2 % (36-54); HEMOGLOBIN 10.3 g/dL (14.0-18.0); LYMPHOCYTES # (AUTO) 0.5 K/uL (1.0-5.5); MEAN CORPUSCULAR HEMOGLOBIN 33 pg (27-31); MEAN CORPUSCULAR HGB CONC 33 % (32-36); MEAN CORPUSCULAR VOLUME 101 fL (79.0-98.0); MONOCYTES # (AUTO) 0.2 K/uL (0.0-1.0); MONOCYTES % (AUTO) 3.7 % (1.7-9.3); NEUTROPHILS # (AUTO) 5.8 K/uL (1.8-7.7); PLATELET COUNT (AUTO) 292 K/uL (130-430); RED BLOOD CELL COUNT(AUTO) 3.09 MIL/uL (4.2-6.2); RED CELL DISTRIBUTION WIDTH 14.4 % (9.0-15.0); WHITE BLOOD COUNT (AUTO) 6.6 K/uL (4.8-10.8)
[2019-07-30 07:29] LABS: CALCIUM 8.5 mg/dL (8.4-11.0); CREATININE 1.23 mg/dL (0.55-1.30); POTASSIUM 3.7 mmol/L (3.5-5.1)
--- NOTE | 2019-07-30 07:30 | NUR ---
Report given to KEISHA Corbett. All care endorsed.
--- NOTE | 2019-07-30 07:30 | NUR ---
pt received and noted lying in bed moaning and moving around. RN introduces himself and asks pt what is wrong. pt states he "has the Flu".
[2019-07-30 07:35] LABS: ALBUMIN 2.9 g/dL (3.4-4.8); TOTAL BILIRUBIN 0.5 mg/dL (0.0-1.0)
[2019-07-30 08:15] LABS: PROTHROMBIN TIME 10.5 SECS (9.5-12.5)
--- NOTE | 2019-07-30 08:57 | NUR ---
LEAH, SISTER OF PT, CALLED FOR ANY UPDATES OF PT. [phone]
--- NOTE | 2019-07-30 09:06 | NUR ---
US tech in room doing Lower extremity.
[2019-07-30 10:23] LABS: BILIRUBIN,URINE NEGATIVE (NEGATIVE); CLARITY/URINE CLEAR (CLEAR); COLOR,URINE YELLOW (YELLOW); GLUCOSE,URINE NEGATIVE (NEGATIVE); KETONES,URINE NEGATIVE (NEGATIVE); LEUKOCYTE ESTERASE ,URINE NEGATIVE (NEGATIVE); NITRITE, URINE NEGATIVE (NEGATIVE); PROTEIN URINE NEGATIVE (NEGATIVE)
--- NOTE | 2019-07-30 10:30 | NUR ---
MD Heart re-evaluating pt and will call MD to admit. pt is stable but c/o chronic left hip pain. pt stated he has hip CA. not confirmed.
[2019-07-30 10:40] LABS: BLOOD, URINE TRACE (NEGATIVE)
[2019-07-30 10:42] LABS: BACTERIA,URINE FEW /HPF (None Seen)
[2019-07-30 10:43] LABS: WBC,URINE 0-3 /HPF (0-3)
[2019-07-30] MEDS ORDERED: MORPHINE 4 MG/ML INJ. SYRINGE IVP PRN (11:45)
[2019-07-30] MEDS ORDERED: DIPHENHYDRAMINE INJ 50 MG/ML VIAL IVP PRN (12:30)
[2019-07-30] MEDS ORDERED: ONDANSETRON HCL 4 MG/2 ML VIAL IVP PRN (12:30)
[2019-07-30] MEDS ORDERED: HYDROmorphone 2 MG/ML VIAL IVP ONE (12:30)
--- NOTE | 2019-07-30 16:20 | NUR ---
Pain medication effective. pt is sleeping in bed.
--- NOTE | 2019-07-30 17:38 | NUR ---
pt continues to sleep well. no pain noted.
--- NOTE | 2019-07-30 19:03 | NUR ---
pt is stable. resting well in bed. the pain shot worked very well for him. report given to overnight stocker RN.
[2019-07-30] MEDS: APIXABAN 2.5 MG TABLET PO SCH (21:00)
--- NOTE | 2019-07-30 21:13 | NUR ---
Patient will be admitted to care of DR JACOBSON. Admitted to unit. Will go to room . Belongings list completed. Complete and up to date summary report printed. SBAR report to be given at bedside with opportunity for questions.
[2019-07-30 21:30] VITALS: BP_SYST 157
--- NOTE | 2019-07-30 21:30 | NUR ---
Patient arrived on unit ADMISSION: The patient, JOCELIN WARD, 59 y/o, M admitted by ALBERTO JACOBSON MD, was given written information regarding hospital policies, unit procedures and contact persons. Valuables were checked and documented.
--- NOTE | 2019-07-30 21:40 | NUR ---
INITIAL ASSESSMENT PATIENT IS CURRENTLY STABLE AND IN BED. PATIENT SHOWS NO SIGNS OR SYMPTOMS OF RESPIRATORY DISTRESS NOTED. CALL LIGHT IN REACH. PATIENT SUCCESSFULLY DEMONSTRATES USAGE OF CALL LIGHT AT THIS TIME. PLAN OF CARE IS DISCUSSED WITH PATIENT. BED IS LOCKED, ALARMED, AND AT THE LOWEST POSITION. FALL AND SAFETY PRECAUTIONS WILL BE PLACED THROUGHOUT THE SHIFT. WILL CONTINUE TO MONITOR.
[2019-07-30] MEDS ORDERED: HYDROcodone/ACETAMIN 5-325 MG TAB (NORCO/ VICODIN) PO PRN (22:15)
[2019-07-30] MEDS ORDERED: ACETAMINOPHEN 325 MG TABLET PO PRN (22:15)
--- NOTE | 2019-07-30 22:25 | NUR ---
ADMINISTERED PRN MEDICATION FOR PAIN PATIENT COMPLAINED OF PAIN. MEDICATION GIVEN. WILL REASSESS. PATIENT IS OTHERWISE STABLE AND IN BED. NO SIGNS OR SYMPTOMS OF RESPIRATORY DISTRESS NOTED. CALL LIGHT IN REACH. WILL CONTINUE TO MONITOR.
--- NOTE | 2019-07-30 23:20 | NUR ---
PAGED PAGED DOCTOR JACOBSON
--- NOTE | 2019-07-30 23:25 | NUR ---
COMMUNICATION WITH DR. KAVON JACOBSON HAS PAGED BACK AT THIS TIME. PATIENT HAS CT ORDERED. REQUEST FOR ANXIETY MEDICATION FOR PATIENT'S "SEVERE CLAUSTROPHOBIA" COMMUNICATED. DIFFERENT DOSE FOR PRN MEDICATION ALSO REQUESTED. GAVE NEW ORDERS. ORDER READ BACK, VERIFIED, AND ENTERED.
[2019-07-30] MEDS ORDERED: HYDROmorphone 2 MG/ML VIAL IVP PRN (23:30)
[2019-07-30] MEDS ORDERED: LORazepam 2 MG/ML VIAL IVP PRN (23:30)
[2019-07-30] MEDS: NACL 0.9% 1,000 ML IV SCH (23:39)
[2019-07-30] MEDS: PIPERACILLIN/TAZO 3.375/DEX-IS 50 ML IV SCH (23:40)
--- NOTE | 2019-07-31 00:40 | NUR ---
PATIENT TRANSFERRED TO CT
[2019-07-31 00:45] VITALS: BP_SYST 143
--- NOTE | 2019-07-31 01:15 | NUR ---
PATIENT TRANSFERRED BACK FROM CT PATIENT IS STABLE AND IN BED. NO SIGNS OR SYMPTOMS OF RESPIRATORY DISTRESS NOTED. PATIENT TOLERATED WELL. CALL LIGHT IN REACH. WILL CONTINUE TO MONITOR
[2019-07-31] MEDS: NACL 0.9% 1,000 ML IV SCH ×3 (02:01→17:51)
--- NOTE | 2019-07-31 03:15 | NUR ---
ROUNDING PATIENT IS SLEEPING IN BED. NO SIGNS OR SYMPTOMS OF RESPIRATORY DISTRESS NOTED. PATIENT IS STABLE. CALL LIGHT IN REACH. BED IS LOCKED, ALARMED, AND AT THE LOWEST POSITION. WILL CONTINUE TO MONITOR.
--- NOTE | 2019-07-31 05:15 | NUR ---
ROUNDING PATIENT IS LAYING IN BED. NO S/S OR SYMPTOMS OF RESPIRATORY DISTRESS NOTED. CALL LIGHT IN REACH. BED IS LOCKED, ALARMED, AND AT THE LOWEST POSITION. WILL CONTINUE TO MONITOR.
[2019-07-31] MEDS: PIPERACILLIN/TAZO 3.375/DEX-IS 50 ML IV SCH ×3 (05:23→17:54)
--- NOTE | 2019-07-31 06:18 | NUR ---
CLOSING NOTES PATIENT IS LAYING IN BED AND STABLE. NO S/S OF RESPIRATORY DISTRESS. CALL LIGHT IN REACH. BED IS LOCKED, ALARMED, AND AT THE LOWEST POSITION. FALL, SAFETY, AND RESPIRATORY PRECAUTION HAS BEEN PLACED THROUGHOUT THE SHIFT. WILL CONTINUE TO MONITOR UNTIL SHIFT REPORT IS GIVEN TO AM NURSE.
[2019-07-31 06:20] LABS: BASOPHILS % (AUTO) 0.4 % (0.0-2.0); EOSINOPHILS % (AUTO) 0.3 % (0.0-4.0); HEMATOCRIT 29.8 % (36-54); LYMPHOCYTES # (AUTO) 0.5 K/uL (1.0-5.5); LYMPHOCYTES % (AUTO) 8.6 % (20.5-51.5); MEAN CORPUSCULAR HEMOGLOBIN 34 pg (27-31); MEAN CORPUSCULAR HGB CONC 34 % (32-36); MEAN CORPUSCULAR VOLUME 100 fL (79.0-98.0); MONOCYTES # (AUTO) 0.3 K/uL (0.0-1.0); MONOCYTES % (AUTO) 5.8 % (1.7-9.3); NEUTROPHILS # (AUTO) 4.6 K/uL (1.8-7.7); NEUTROPHILS % (AUTO) 84.9 % (40.0-70.0); PLATELET COUNT (AUTO) 228 K/uL (130-430); RED BLOOD CELL COUNT(AUTO) 2.97 MIL/uL (4.2-6.2); RED CELL DISTRIBUTION WIDTH 13.9 % (9.0-15.0); WHITE BLOOD COUNT (AUTO) 5.4 K/uL (4.8-10.8)
--- NOTE | 2019-07-31 08:00 | NUR ---
RN INITIAL NOTES RECEIVED PATIENT IN BED ASLEEP NO DISTRESS , RISE AND FALL OF THE CHEST NOTED NO DISTRESS , IVF INFUSING ORDERED NO FACIAL GRIMACE NOTED , WILL FOLLOW UP MEDS .
--- NOTE | 2019-07-31 10:00 | NUR ---
ROUNDS PATIENT NOT IN ANY DISTRESS, NO C/O OF PAIN , ELIQUIS GIVEN AND RESTED IN BED
[2019-07-31] MEDS: APIXABAN 2.5 MG TABLET PO SCH ×2 (10:11→22:05)
[2019-07-31 10:26] LABS: ALBUMIN 2.6 g/dL (3.4-4.8); CALCIUM 7.7 mg/dL (8.4-11.0); CREATININE 1.4 mg/dL (0.55-1.30); POTASSIUM 3.3 mmol/L (3.5-5.1)
[2019-07-31] MEDS ORDERED: POTASSIUM CHLORIDE 20 MEQ TAB.PRT.SR PO ONE (10:45)
--- NOTE | 2019-07-31 10:47 | NUR ---
DR KAVON HIGH SEEN PATIENT NOTED WITH HR OF 132 , ORDERED STAT EKG TO R/O AFIB, RT MADE AWARE. WILL FOLLOW UP PATIENT REQUEST, NO COMPLAIN OF CHEST PAIN, NO DISTRESS
[2019-07-31] MEDS ORDERED: ACETAMINOPHEN 650 MG/20.3 ML UDC PO PRN (11:00)
--- NOTE | 2019-07-31 12:00 | NUR ---
ROUNDS PATIENT IS SLEEPING SISTER VISITED
[2019-07-31 12:42] VITALS: BP_SYST 144
--- NOTE | 2019-07-31 14:00 | NUR ---
FLEET ENEMA PATIENT REQUESTING FOR FLEET ENEMA CALLED DR JACOBSON WITH ORDER THEN WAQAS LAMAR NOW HE PASSED GAS
[2019-07-31] MEDS ORDERED: SODIUM PHOSPHATE,MONO-DIBASIC 133 ML ENEMA RC ONE (15:15)
[2019-07-31 16:30] VITALS: BP_SYST 145
[2019-07-31] MEDS: HYDROmorphone 2 MG/ML VIAL IVP PRN (17:13)
[2019-07-31] MEDS: GABAPENTIN 300 MG CAPSULE PO SCH ×2 (17:15→22:04)
--- NOTE | 2019-07-31 18:59 | NUR ---
ENDORSEMENT WILL CONT CARE PATIENT WANTS HIS FLEET ENEMA LATER IF HE DECIDED TO, PAIN MEDS GIVEN ADVISED TO CALL FOR HELP, PATIENT STATED YOU DONT NEED TO CHECK ON ME I HAVE NO WOUND ONLY PAIN ON MY LEFT HIP FOR ALONG TIME
--- NOTE | 2019-07-31 19:26 | NUR ---
OPENING NOTE RECEIVED CARE OF PT AND SBAR REPORT. PT IS AAOX4, RESTING IN BED, NO S/S OF ACUTE DISTRESS. BREATHING IS EVEN AND UNLABORED TO ROOM AIR. PT DENIES PAIN AT THIS TIME. IVF INFUSING AT ORDERED RATE WITH NO SIGN OF INFILTRATION AT IV SITE. SAFETY PRECAUTIONS ARE IN PLACE: BED IS LOCKED IN LOWEST POSITION, SIDE RAILS UP X2, BED ALARM ON, CALL LIGHT IS WITH PT, CLOSE TO NURSES STATION. WILL MONITOR.
[2019-07-31 20:00] VITALS: BP_SYST 142
--- NOTE | 2019-07-31 21:15 | NUR ---
SLEEPING PT RESTING IN BED, NO S/S OF DISTRESS, BREATHING IS UNLABORED, IVF INFUSING ORDERED. SKIN IS WARM AND DRY TO TOUCH. SOFT SNORE CAN BE HEARD. SAFETY PRECAUTIONS IN PLACE. WILL MONITOR.
[2019-07-31] MEDS: QUEtiapine FUMARATE 100 MG TABLET PO SCH (22:04)
--- NOTE | 2019-07-31 22:04 | NUR ---
MEDICATION PASS SCHEDULED MEDICATIONS ADMINISTERED ORDERED. PT TOOK PILLS WITH NO PROBLEMS. MEDICATIONS AND POTENTIAL SIDE EFFECTS DISCUSSED, PT VERBALIZED UNDERSTANDING. PT DENIES FURTHER NEEDS AT THIS TIME. SAFETY PRECAUTIONS MAINTAINED. WILL MONITOR.
[2019-07-31] MEDS ORDERED: APIXABAN 2.5 MG TABLET ONE (22:15)
[2019-07-31] MEDS ORDERED: GABAPENTIN 300 MG CAPSULE ONE (22:16)
[2019-07-31] MEDS ORDERED: QUEtiapine FUMARATE 100 MG TABLET ONE (22:16)
[2019-08-01] MEDS: PIPERACILLIN/TAZO 3.375/DEX-IS 50 ML IV SCH ×4 (00:13→17:21)
--- NOTE | 2019-08-01 00:13 | NUR ---
ZOSYN SCHEDULED ZOSYN ADMINISTERED. NO S/S OF ADVERSE REACTION NOTED.
[2019-08-01 01:44] VITALS: BP_SYST 152
--- NOTE | 2019-08-01 02:03 | NUR ---
SNACKS PT REQUESTING SNACKS. PT GIVEN SANDWICH, JELLO, AND CRACKERS PER REQUEST. PT RESTING IN BED, NO ACUTE DISTRESS NOTED. SAFETY PRECAUTIONS REMAIN IN PLACE. WILL MONITOR.
[2019-08-01] MEDS: NACL 0.9% 1,000 ML IV SCH (05:31)
--- NOTE | 2019-08-01 05:31 | NUR ---
IVF BAG CHANGE/ZOSYN SCHEDULED ZOSYN ADMINISTERED. NEW BAG OF NS HUNG. PT RESTING IN BED WITH NO S/S OF DISTRESS. SAFETY MAINTAINED. WILL MONITOR.
--- NOTE | 2019-08-01 06:53 | NUR ---
CLOSING NOTE PT IS AAOX4, RESTING IN BED, NO S/S OF ACUTE DISTRESS. BREATHING IS EVEN AND UNLABORED TO ROOM AIR. PT DENIES PAIN AT THIS TIME. IVF INFUSING AT ORDERED RATE WITH NO SIGN OF INFILTRATION AT IV SITE. NO REPORTED PAIN THROUGHOUT SHIFT. SAFETY PRECAUTIONS ARE IN PLACE: BED IS LOCKED IN LOWEST POSITION, SIDE RAILS UP X2, BED ALARM ON, CALL LIGHT IS WITH PT, CLOSE TO NURSES STATION. WILL MONITOR UNTIL PT CARE IS ENDORSED TO DAY SHIFT RN.
--- NOTE | 2019-08-01 07:48 | NUR ---
Initial Notes- in bed awake, pain is controlled at this time. uses urinal, has good amount of urine. IVF infusing well. update plan of care. call light wihtin reach. enc. to call for help as needed
[2019-08-01 08:00] VITALS: BP_SYST 128
[2019-08-01] MEDS: ACYCLOVIR 400 MG TABLET PO SCH (08:29)
[2019-08-01] MEDS: LISINOPRIL 20 MG TABLET PO SCH (08:30)
[2019-08-01] MEDS: GABAPENTIN 300 MG CAPSULE PO SCH ×3 (08:30→21:31)
[2019-08-01] MEDS: APIXABAN 2.5 MG TABLET PO SCH ×2 (08:31→21:31)
[2019-08-01] MEDS: QUEtiapine FUMARATE 100 MG TABLET PO SCH ×2 (08:33→21:31)
[2019-08-01] MEDS ORDERED: GABAPENTIN 300 MG CAPSULE ONE (08:38)
[2019-08-01] MEDS ORDERED: APIXABAN 2.5 MG TABLET ONE (08:38)
[2019-08-01] MEDS ORDERED: QUEtiapine FUMARATE 100 MG TABLET ONE (08:39)
[2019-08-01] MEDS ORDERED: ACYCLOVIR 400 MG TABLET ONE (08:39)
[2019-08-01] MEDS ORDERED: LISINOPRIL 20 MG TABLET ONE (08:39)
[2019-08-01] MEDS: HYDROmorphone 2 MG/ML VIAL IVP PRN ×2 (08:41→17:29)
[2019-08-01] MEDS ORDERED: HYDROmorphone 1 MG INJ. 1 MG/ML AMPUL ONE (08:54)
--- NOTE | 2019-08-01 10:28 | NUR ---
notes- resting at this time. No acute distress noted.
--- NOTE | 2019-08-01 11:02 | NUR ---
CONSULTATION PAGED REASON FOR CONSULTATION:MYELOMA WAS CONSULT CALLED?Y PERSON WHO WAS NOTIFIED:TERA CONSULTING PHYSICIAN:MATY PEREZ CONCRETE SAW OPERATOR SPECIALTY:HEMATOLOGY CONCRETE SAW OPERATOR PHONE NUMBER:[phone] REQUESTING PHYSICIAN:HILTON MADRID
--- NOTE | 2019-08-01 11:08 | NUR ---
CONSULTATION PAGED REASON FOR CONSULTATION:LUMBAR RADICULOPATHY WAS CONSULT CALLED?Y PERSON WHO WAS NOTIFIED:KIRSTEN CONSULTING PHYSICIAN:KWESI CHILEL OIL WELL PUMPER SPECIALTY:NEURO OIL WELL PUMPER PHONE NUMBER:[phone] REQUESTING PHYSICIAN:HILTON MADRID
--- NOTE | 2019-08-01 12:12 | NUR ---
MD HAILE GAMBOA CALLED AT SPOKE WITH DR.JANDIAL LAWSON RAJNISH HOGSHEAD STOCK CLERK.
--- NOTE | 2019-08-01 12:24 | NUR ---
patient is clautrophobic and wants ativan for the MRI, spoke to Dr. ortega and made aware. new orders received.
[2019-08-01] MEDS ORDERED: LORazepam 2 MG/ML VIAL IVP ONE (12:30)
[2019-08-01] MEDS ORDERED: LORazepam 2 MG/ML VIAL ONE (12:57)
--- NOTE | 2019-08-01 13:11 | NUR ---
Per MRI, the machine broke and unable to do MRI today.
[2019-08-01 13:12] VITALS: BP_SYST 133
[2019-08-01 16:20] VITALS: BP_SYST 153
--- NOTE | 2019-08-01 16:26 | NUR ---
Equipment Scheduler: Received Homeless Referral HEALTH SCIENCE INSTRUCTOR met with re-admitted pt. who is still homeless, residing in his car. Pt. Addendum: 08/01/19 at 1702 by Mecca King HEALTH SCIENCE INSTRUCTOR Equipment Scheduler: finish notes from contact with pt. Pt. resides in his car. He walked into the ED barefoot. He stated he does not have shoes. He will need clothing size 4x shirt, size XL 48 pants, jacket and a a pair of size 15 shoes upon D/C as well as a meal. 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 Being homeless has been a big barrier for him and his continued health plan. PT. stated it has been a long time, too long since he has been on his Chemo. Pt. stated he was Dx. with Depression in 2008 and has been taking two meds. He only recalled one of them, Seroquel. he takes this on a daily basis. He stated he gets his prescription filled at any pharmacy. His PCP is Dr. Gross in [place] off [facility]. He recalls getting MH services at the a psychiatrist on the [place] office off of [address]. HEALTH SCIENCE INSTRUCTOR will leave notes for can operator to follow up tomorrow. HEALTH SCIENCE INSTRUCTOR called [facility] coordinator for [facility], Reece Arrington, , [email or web address] who stated based on pts. Dx. with Depression continued use of Seroquel and being "Chronically Homeless" he sounds like a good candidate for the older adult [facility]. Murphy referred HEALTH SCIENCE INSTRUCTOR to pts. [facility] therapist to touch base with them. They may not even know pts. needs are not being met or may know if a referral to [facility] for older adults has already been made. If HEALTH SCIENCE INSTRUCTOR is having difficulties, she is to email Mr. Arrington who offered to assist HEALTH SCIENCE INSTRUCTOR. HEALTH SCIENCE INSTRUCTOR called [facility] on [address], based on pts. memory, staff looked up pt. and stated his case is not activated in that office despite pt. having a long list there. She suggested HEALTH SCIENCE INSTRUCTOR contact the [place] office, . HEALTH SCIENCE INSTRUCTOR called this [place] office and stated pt. is not a pt. there since [address] [facility] office in [place]. HEALTH SCIENCE INSTRUCTOR may call Gracie Luo to see if she can look this pt. up in the [facility] system.
--- NOTE | 2019-08-01 18:24 | NUR ---
Notes- Pain is resting, pain is controlled at this time. IVF infusing well. All needs meet through out shift. will endorse
[2019-08-02] MEDS: PIPERACILLIN/TAZO 3.375/DEX-IS 50 ML IV SCH ×3 (00:32→12:15)
[2019-08-02 08:26] VITALS: BP_SYST 144
[2019-08-02] MEDS: APIXABAN 2.5 MG TABLET PO SCH (09:14)
[2019-08-02] MEDS: LISINOPRIL 20 MG TABLET PO SCH (09:14)
[2019-08-02] MEDS: ACYCLOVIR 400 MG TABLET PO SCH (09:15)
[2019-08-02] MEDS: QUEtiapine FUMARATE 100 MG TABLET PO SCH (09:15)
[2019-08-02] MEDS: HYDROmorphone 2 MG/ML VIAL IVP PRN ×2 (09:16→16:42)
[2019-08-02] MEDS: NACL 0.9% 1,000 ML IV SCH (09:16)
[2019-08-02] MEDS: GABAPENTIN 300 MG CAPSULE PO SCH ×2 (09:24→16:38)
--- NOTE | 2019-08-02 10:12 | NUR ---
Nutrition Update Rodríguez Scale 18 noted. Pt admitted for L hip pain r/o avascular necrosis of L. Diet: regular BMI: 33.1 kg/m2 RD to follow per nutrition care standards.
--- NOTE | 2019-08-02 11:20 | NUR ---
Actuarial Trainee Note Phoned Tiffany with the [facility]- [facility], . She did not find patient in the system. Made a referral. She stated they will follow up. Patient stated his correct phone number is [phone] and a number for his sister is [phone]. He does not park in any specific area to sleep at night. Addendum: 08/02/19 at 1219 by Barb Taylor LCSW He uses his sister's address for a mailing address: [address], [place] [address]
[2019-08-02 11:57] VITALS: BP_SYST 161
--- NOTE | 2019-08-02 18:37 | NUR ---
Patient handoff report to [facility] and patient to be on time otherwise the facility will not accept. Call to notify case folder Sharon of the transfer restriction and she says the ambulance will be on time at 8 pm. Lavelle Cantu RN
[2019-08-02 19:02] VITALS: BP_SYST 137
--- NOTE | 2019-08-02 19:15 | NUR ---
NURSES NOTE: 191- received pt. awake on bed; alaert and oriented x 4; discharge papers facilitated; siderails x 2 are up; bed alarm is on; call light is within reach; awaiting for transport for discharge to [facility]
--- NOTE | 2019-08-02 19:29 | NUR ---
Handoff to night nurse KEISHA Bravo. Lavelle Cantu RN
--- NOTE | 2019-08-02 20:10 | NUR ---
NURSES NOTE: 1999- report given to transport; pt.s' belongings checked; 2009- discharge to [facility] via ambulance
[2019-08-04 05:16] LABS: A/G RATIO 0.5 (0.7-1.7); ALBUMIN 3.1 g/dL (2.9-4.4); ALPHA-1-GLOBULIN 0.4 g/dL (0.0-0.4); ALPHA-2-GLOBULIN 1.2 g/dL (0.4-1.0); GAMMA GLOBULIN 3.7 g/dL (0.4-1.8); GLOBULIN, TOTAL 6.3 g/dL (2.2-3.9); M-SPIKE 3.4 g/dL (Not Observed)
[2019-08-04 15:11] LABS: IMMUNOGLOBULIN G, SERUM 5268 mg/dL (700-1600); IMMUNOGLOBULIN M, SERUM 6 mg/dL (20-172)
[2019-08-04 15:12] LABS: KAPPA & LAMBDA LT CHAIN RATIO 0.18 (0.26-1.65)
[2019-08-05 21:31] LABS: IMMUNOGLOBULIN E,TOTAL 118 IU/mL (6-495)
== END 2019-08-02 20:05 | DRG 691 ==
LOC: SED 06:27 → SMU 11:33
PROVIDERS: ADMIT Internal Medicine; ATTEND Internal Medicine
DX: C90.00 Multiple myeloma not having achieved remission (principal); E44.0 Moderate protein-calorie malnutrition; E87.1 Hypo-osmolality and hyponatremia; M87.852 Other osteonecrosis, left femur; I10 Essential (primary) hypertension; M16.0 Bilateral primary osteoarthritis of hip; D64.9 Anemia, unspecified; M20.40 Other hammer toe(s) (acquired), unspecified foot; M25.78 Osteophyte, vertebrae; M48.061 Spinal stenosis, lumbar region without neurogenic claudication; R29.6 Repeated falls; M54.5 Low back pain; Z79.899 Other long term (current) drug therapy; Z92.21 Personal history of antineoplastic chemotherapy; Z86.718 Personal history of other venous thrombosis and embolism
CPT/HCPCS: 36415; 71045; 72132-TC; 72170-TC; 73502; 73700-TC; 80053; 81000-TC; 82784; 82785; 83605; 84155; 84165; 85025; 85610-TC; 86710; 87040-TC; 87086; 93005; 93971; 96361; 96374; 96375; 97110-GP; 97116-GP; 97530-GP; 99285; J1170; J2060; J2270; J2543; J7030; J7060

== ENCOUNTER 2019-10-02 08:09 | Emergency (ER) | payer MEDICAID ==
[~2019-10-02] VITALS: Ht 195.6 cm; Wt 129.3 kg
[2019-10-02 08:09] VITALS: BP_SYST 129
[2019-10-02] MEDS ORDERED: NACL 0.9% 1,000 ML IV ONE (08:18)
[2019-10-02] MEDS ORDERED: KETOROLAC TROMETHAMINE 30 MG VIAL IVP ONE (08:30)
[2019-10-02 09:14] LABS: BASOPHILS % (AUTO) 0.7 % (0.0-2.0); EOSINOPHILS # (AUTO) 0.1 K/uL (0.0-0.4); EOSINOPHILS % (AUTO) 3.5 % (0.0-4.0); HEMATOCRIT 31.1 % (36-54); HEMOGLOBIN 10.3 g/dL (14.0-18.0); LYMPHOCYTES # (AUTO) 0.8 K/uL (1.0-5.5); MEAN CORPUSCULAR HEMOGLOBIN 34 pg (27-31); MEAN CORPUSCULAR HGB CONC 33 % (32-36); MEAN CORPUSCULAR VOLUME 101 fL (79.0-98.0); MONOCYTES # (AUTO) 0.2 K/uL (0.0-1.0); MONOCYTES % (AUTO) 6.1 % (1.7-9.3); NEUTROPHILS # (AUTO) 2.4 K/uL (1.8-7.7); NEUTROPHILS % (AUTO) 66.7 % (40.0-70.0); PLATELET COUNT (AUTO) 272 K/uL (130-430); RED BLOOD CELL COUNT(AUTO) 3.07 MIL/uL (4.2-6.2); WHITE BLOOD COUNT (AUTO) 3.6 K/uL (4.8-10.8)
[2019-10-02 09:25] LABS: CALCIUM 8.1 mg/dL (8.4-11.0); CREATININE 1.29 mg/dL (0.55-1.30)
[2019-10-02 09:31] LABS: ALBUMIN 2.8 g/dL (3.4-4.8); TOTAL BILIRUBIN 0.6 mg/dL (0.0-1.0)
[2019-10-02 09:36] LABS: POTASSIUM 2.9 mmol/L (3.5-5.1)
[2019-10-02] MEDS ORDERED: KCL 20 mEq in 100 mL (PREMIX) 100 ML IV ONE (10:00)
[2019-10-02] MEDS ORDERED: MORPHINE 4 MG/ML INJ. SYRINGE IVP ONE (10:15)
[2019-10-02 11:32] VITALS: BP_SYST 145
== END 2019-10-02 11:32 | disposition home or self-care (01) ==
LOC: SED 08:09
DX: M25.551 Pain in right hip (principal); I10 Essential (primary) hypertension; Z85.820 Personal history of malignant melanoma of skin; Z86.73 Personal history of transient ischemic attack (TIA), and cerebral infarction without residual deficits; Z79.899 Other long term (current) drug therapy
CPT/HCPCS: 36415; 73502; 80053; 83690; 85025; 96365; 96375; 99284; J1885; J2270; J3480; J7030

== ENCOUNTER 2020-11-09 05:47 | Emergency (ER) | payer MEDICAID, OTHER ==
[~2020-11-09] VITALS: Ht 195.6 cm; Wt 138.3 kg
[~2020-11-09 05:47] MED LIST changes: +CIPR500T5 PO; +DIF100 PO; -LISI-600 PO; +LISI20TA30 PO; -OXYC-580 PO; +OXYIR5 PO
[2020-11-09 06:10] VITALS: BP_SYST 123
[2020-11-09] MEDS ORDERED: TAMS-11 PO (06:55)
[2020-11-09] MEDS ORDERED: FAMO-132 PO (06:55)
[2020-11-09] MEDS ORDERED: DEC4 PO (06:55)
[2020-11-09] MEDS ORDERED: PHEN100C4 PO (06:55)
[2020-11-09] MEDS ORDERED: MORP15TA60 PO (06:55)
[2020-11-09] MEDS ORDERED: AMLO5TAB4 PO (06:55)
[2020-11-09] MEDS ORDERED: ONDANSETRON HCL 4 MG/2 ML VIAL ONE (06:58)
[2020-11-09] MEDS ORDERED: MORPHINE 4 MG/ML INJ. SYRINGE ONE (06:58)
[2020-11-09] MEDS ORDERED: MORPHINE 4 MG/ML INJ. SYRINGE IVP ONE (07:15)
[2020-11-09] MEDS ORDERED: NACL 0.9% 1,000 ML IV ONE (07:15)
[2020-11-09 07:35] LABS: BASOPHILS % (AUTO) 0.4 % (0.0-2.0); EOSINOPHILS # (AUTO) 0.1 K/uL (0.0-0.4); HEMATOCRIT 27.9 % (36-54); HEMOGLOBIN 9.1 g/dL (14.0-18.0); LYMPHOCYTES # (AUTO) 1.1 K/uL (1.0-5.5); LYMPHOCYTES % (AUTO) 32.4 % (20.5-51.5); MEAN CORPUSCULAR HEMOGLOBIN 32 pg (27-31); MEAN CORPUSCULAR HGB CONC 33 % (32-36); MEAN CORPUSCULAR VOLUME 99 fL (79.0-98.0); MONOCYTES # (AUTO) 0.2 K/uL (0.0-1.0); MONOCYTES % (AUTO) 5.3 % (1.7-9.3); NEUTROPHILS % (AUTO) 59.9 % (40.0-70.0); PLATELET COUNT (AUTO) 312 K/uL (130-430); RED BLOOD CELL COUNT(AUTO) 2.84 MIL/uL (4.2-6.2); RED CELL DISTRIBUTION WIDTH 15.7 % (9.0-15.0); WHITE BLOOD COUNT (AUTO) 3.3 K/uL (4.8-10.8)
[2020-11-09 07:42] LABS: CALCIUM 8.5 mg/dL (8.4-11.0); CREATININE 1.31 mg/dL (0.55-1.30); POTASSIUM 3.4 mmol/L (3.5-5.1)
[2020-11-09 07:46] LABS: ALBUMIN 2.6 g/dL (3.4-4.8); TOTAL BILIRUBIN 0.1 mg/dL (0.0-1.0)
[2020-11-09] MEDS ORDERED: fentaNYL CITRATE/PF 100 MCG/2 ML AMP IVP ONE (09:00)
[2020-11-09] MEDS ORDERED: SOM350 PO (09:56)
[2020-11-09] MEDS ORDERED: HYDR-3919 PO (09:56)
[2020-11-09 10:30] VITALS: BP_SYST 130
== END 2020-11-09 10:30 | disposition home or self-care (01) ==
LOC: SED 05:47
DX: M54.40 Lumbago with sciatica, unspecified side (principal); I10 Essential (primary) hypertension; F17.200 Nicotine dependence, unspecified, uncomplicated; Z86.73 Personal history of transient ischemic attack (TIA), and cerebral infarction without residual deficits; Z79.899 Other long term (current) drug therapy; Z88.6 Allergy status to analgesic agent
CPT/HCPCS: 36415; 71045; 72131; 73502; 76376; 80053; 84484; 85025; 93005; 96374; 96375; 99285; J2270; J2405; J3010; J7030

== ENCOUNTER 2022-11-20 18:23 | Emergency (ER) | payer MEDICAID, OTHER ==
[~2022-11-20] VITALS: Ht 195.6 cm; Wt 152.0 kg
[~2022-11-20 18:23] MED LIST changes: -ACYC400T PO; +AMLO5TAB4 PO; -APIX5TAB4 PO; -CIPR500T5 PO; -CYAN100070 PO; +DEC4 PO; -DIF100 PO; -DOCU-144 PO; +FAMO-132 PO; +HYDR-3919 PO; -MAG1TABL2 PO; -METH2TAB PO; +MORP15TA60 PO; -OMEG1CAP PO; -OXYIR5 PO; +PHEN100C4 PO; +SOM350 PO; +TAMS-11 PO; -VIT A PO; -Vit B6 PO; -[UNRECOGNIZED DRUG - OTHER]; -magnesium PO
[2022-11-20 18:35] VITALS: BP_SYST 163
--- NOTE | 2022-11-20 19:15 | NUR ---
Pt brought by , A&Ox4, pt presents to ER with back pain , abdominal pain, N/V,dizziness, pt states he has Hx of bone marrow CA, last chemo was 1 month ago, Dr Mansfield and Demetrius RN notified, pt awaiting for room 08 for placement.
--- NOTE | 2022-11-20 19:44 | NUR ---
Placed in room 8 . Placed on electronic device monitor, blood pressure machine and pulse oximeter. To gown for exam. Side rails up. Report given to Rosmery VALDES (reg).
[2022-11-20 19:47] LABS: HEMOGLOBIN 7.5 g/dL (14.0-18.0); LYMPHOCYTES # (AUTO) 0.8 K/uL (1.0-5.5); NEUTROPHILS # (AUTO) 1.7 K/uL (1.8-7.7)
--- NOTE | 2022-11-20 19:50 | NUR ---
Dr. Mansfield at bedside examining the patient.
[2022-11-20 19:51] LABS: BASOPHILS % (AUTO) 0.4 % (0.0-2.0); EOSINOPHILS % (AUTO) 1.8 % (0.0-4.0); LYMPHOCYTES % (AUTO) 29.9 % (20.5-51.5); MEAN CORPUSCULAR HEMOGLOBIN 36 pg (27-31); MEAN CORPUSCULAR HGB CONC 35 % (32-36); MEAN CORPUSCULAR VOLUME 102 fL (79.0-98.0); MONOCYTES # (AUTO) 0.1 K/uL (0.0-1.0); MONOCYTES % (AUTO) 5.2 % (1.7-9.3); NEUTROPHILS % (AUTO) 62.7 % (40.0-70.0); PLATELET COUNT (AUTO) 194 K/uL (130-430); RED CELL DISTRIBUTION WIDTH 19.3 % (9.0-15.0); WHITE BLOOD COUNT (AUTO) 2.8 K/uL (4.8-10.8)
[2022-11-20 20:00] LABS: HEMATOCRIT 21.4 % (36-54)
[2022-11-20] MEDS ORDERED: NACL 0.9% 1,000 ML IV ONE (20:00)
[2022-11-20] MEDS ORDERED: ONDANSETRON HCL 4 MG/2 ML VIAL IVP ONE (20:00)
[2022-11-20] MEDS ORDERED: MORPHINE 4 MG INJ. 4 MG/ML VIAL IVP ONE ×2 (20:00→22:15)
[2022-11-20 20:09] LABS: CALCIUM 8.4 mg/dL (8.4-11.0); CREATININE 1.42 mg/dL (0.55-1.30)
[2022-11-20 20:26] LABS: INR 1.5 (0.80-1.20)
[2022-11-20 20:31] LABS: ALBUMIN 2.1 g/dL (3.4-4.8); TOTAL BILIRUBIN 0.4 mg/dL (0.0-1.0)
--- NOTE | 2022-11-20 20:35 | NUR ---
Verified with Dr. Mansfield that the patient is okay to take Morphine Sulfate even with allergies to Hydromorphone.
[2022-11-20] MEDS ORDERED: LORazepam 2 MG/ML VIAL IVP ONE (20:45)
--- NOTE | 2022-11-20 21:15 | NUR ---
Patient taken to CT.
--- NOTE | 2022-11-20 21:30 | NUR ---
Patient is back from CT.
[2022-11-20] MEDS ORDERED: ONDA-8 TL (22:21)
[2022-11-20 23:15] VITALS: BP_SYST 146
--- NOTE | 2022-11-20 23:16 | NUR ---
Patient given written and verbal discharge instructions and verbalizes understanding. ER MD discussed with patient the results and treatment provided. Patient in stable condition. ID arm band removed. IV catheter removed intact and dressing applied, no active bleeding. Rx of ONDANSETRON given. Patient educated on pain management and to follow up with PMD. Pain Scale 6/10. Opportunity for questions provided and answered. Medication side effect fact sheet provided.
== END 2022-11-20 23:15 | disposition home or self-care (01) ==
LOC: SED 18:23
DX: R10.9 Unspecified abdominal pain (principal); C90.00 Multiple myeloma not having achieved remission; R11.2 Nausea with vomiting, unspecified; M54.9 Dorsalgia, unspecified; G89.29 Other chronic pain; I10 Essential (primary) hypertension; Z88.8 Allergy status to other drugs, medicaments and biological substances; Z79.899 Other long term (current) drug therapy
CPT/HCPCS: 99285; 74176; 96374; 96375; 71045; 80053; 85025; 85610; 85730; 87040; 84484; 36415; 93005; 76376; 81002; 83605; J2060; J2405; J2270; 96376